=== PATIENT | female | born 1970 | race Caucasian/White ===

== ENCOUNTER 2020-11-24 09:54 | Outpatient (CLI) | payer MEDICAID, SELFPAY ==
--- NOTE | 2020-11-24 10:02 | US_ITS ---
WS: [id number] ULTRASOUND ABDOMEN CLINICAL INFORMATION: SWOLLEN ABDOMEN/ABDOMINAL DISTENSION (GASEOUS) COMPARISON: None. FINDINGS: Liver Size: Normal. Craniocaudal length: 15.3 cm. Echogenicity: Normal. Surface nodularity: None. Mass (size and location): None. Bile ducts Intrahepatic ducts: Normal. Common bile duct diameter: 0.5 cm. Gallbladder Normal. Gallstones: None. Gallbladder sludge: None. Gallbladder wall thickening: None. Pericholecystic fluid: None. Sonographic Lopez sign: Absent. Pancreas Normal as visualized. Spleen Splenomegaly: None. Craniocaudal length: 8.3 cm. Right kidney: Normal. Hydronephrosis: None. Size: 10.1 cm x 5.4 cm x 4.0 cm Left kidney: Normal. Hydronephrosis: None. Size: 9.3 cm x 4.7 cm x 4.2 cm. Abdominal aorta and IVC Visualized portions are normal. Ascites: None. US/US abdomen complete* [id number] IMPRESSION: Normal abdominal ultrasound
== END 2020-11-24 09:55 | disposition home or self-care (01) ==
LOC: RAD 10:01
PROVIDERS: PCP Nurse Practitioner; Visit Provider Nurse Practitioner Family
DX: R14.0 Abdominal distension (gaseous) (principal)
CPT/HCPCS: 76700

== ENCOUNTER → 2020-11-29 14:07 | Outpatient (BNVA) | payer MEDICAID, SELFPAY | PROVIDERS: PCP Nurse Practitioner Family; Referring Provider Nurse Practitioner Family; Visit Provider Orthopaedic Surgery | DX: M25.551 Pain in right hip (principal); M16.11 Unilateral primary osteoarthritis, right hip | CPT/HCPCS: 73502 ==

== ENCOUNTER → 2020-12-07 09:05 | Outpatient (BNVA) | payer MEDICAID, SELFPAY | PROVIDERS: PCP Nurse Practitioner Family; Referring Provider Orthopaedic Surgery; Visit Provider Anesthesiology Pain Medicine | DX: M25.552 Pain in left hip (principal); M19.90 Unspecified osteoarthritis, unspecified site; M47.816 Spondylosis without myelopathy or radiculopathy, lumbar region; M54.2 Cervicalgia | CPT/HCPCS: 99205 ==

== ENCOUNTER → 2020-12-08 12:40 | Outpatient (BNVA) | payer MEDICAID, SELFPAY | PROVIDERS: PCP Nurse Practitioner Family; Visit Provider Anesthesiology Pain Medicine | DX: G89.29 Other chronic pain (principal); M25.552 Pain in left hip; M19.90 Unspecified osteoarthritis, unspecified site; F17.210 Nicotine dependence, cigarettes, uncomplicated | CPT/HCPCS: 20610; 77002; 77003; J1030; J3490 ==

== ENCOUNTER 2020-12-17 14:49 | Outpatient (CLI) | payer MEDICAID, SELFPAY ==
--- NOTE | 2020-12-17 15:00 | USCV_ITS ---
Cathy Bray Age: 50 Gender: F : 1970 Exam Date: 12/17/2020 15:07 Ordering Phys: Rupa Ackerman MD ([email or web address]) Technologist: Hue Roy [place] [facility] [place]: [place]ST PAIN BP: / HR: 72 Rhythm: Sinus Technical Quality: Adequate MEASUREMENTS (Male / Female) Normal Values 2D ECHO LV Diastolic Diameter PLAX 3.6 cm 4.2 - 5.9 / 3.9 - 5.3 cm LV Systolic Diameter PLAX 2.0 cm LV Chamber Size 2.4 cm IVS Diastolic Thickness 1.1 cm 0.6 - 1.0 / 0.6 - 0.9 cm IVS Systolic Thickness 1.0 cm LVPW Diastolic Thickness 1.7 cm 0.6 - 1.0 / 0.6 - 0.9 cm LVPW Systolic Thickness 1.7 cm RV Chamber Size 2.1 cm LVOT Diameter 2.0 cm LV Ejection Fraction 2D Teich 74.3 % LV Ejection Fraction MOD 2C 48.1 % LV Ejection Fraction 2C AL 48.9 % LA Diameter 2.6 cm LA Width 2.5 cm LA Height 4.0 cm RA Width 2.9 cm RA Height 3.3 cm Aorta at Sinotubular Diameter 2.6 cm M-MODE LV Diastolic Diameter MM 4.8 cm 4.2 - 5.9 / 3.9 - 5.3 cm LV Systolic Diameter MM 2.6 cm LV Ejection Fraction MM Teich 75.7 % IVS Diastolic Thickness MM 0.6 cm 0.6 - 1.0 / 0.6 - 0.9 cm IVS Systolic Thickness MM 0.9 cm LVPW Diastolic Thickness MM 0.7 cm 0.6 - 1.0 / 0.6 - 0.9 cm LVPW Systolic Thickness MM 1.2 cm Aortic Annulus Diameter 3.1 cm LA Ao Ratio MM 0.9 MV E Point Septal Separation 0.5 cm DOPPLER AV Peak Velocity 139.0 cm/s LVOT Peak Velocity 119.0 cm/s AV Area Cont Eq vti 2.7 cm squared AV Area Cont Eq pk 2.8 cm squared MV Area PHT 4.2 cm squared Mitral E to A Ratio 0.7 MV E' Velocity 40.5 cm/s Mitral E to MV E' Ratio 4.4 Mitral E to LV E' Lateral Ratio 4.4 Mitral E to LV E' Septal Ratio 4.4 TR Peak Velocity 262.0 cm/s TR Peak Gradient 27.5 mmHg TV Peak E Velocity 92.0 cm/s Right Atrial Pressure 3.0 mmHg Pulmonary Artery Systolic Pressu 30.5 mmHg PV Peak Velocity 73.0 cm/s RV Acceleration Time 0.2 s RV Ejection Time 0.4 s RV AcT/ET 0.5 FINDINGS Left Ventricle Normal LV size with a borderline low ejection fraction of 50 to 55%. Mild diffuse hypokinesia of the septum.Grade I/IV diastolic dysfunction (abnormal relaxation filling pattern), normal to mildly elevated filling pressures. Right Ventricle Right Atrium Left Atrium Mitral Valve No gross abnormalities noted Aortic Valve Trace aortic valve regurgitation. Tricuspid Valve Trace tricuspid valve regurgitation. Pulmonic Valve Pericardium Aorta CONCLUSIONS Normal LV size with a borderline low ejection fraction of 50 to 55%. Mild diffuse hypokinesia of the septum. Grade I/IV diastolic dysfunction (abnormal relaxation filling pattern), normal to mildly elevated filling pressures. Trace aortic valve regurgitation. Trace tricuspid valve regurgitation. Normal pulmonary artery peak systolic pressure 31 mmHg There is no pericardial effusion. There are no intracardiac masses. No previous study is available for comparison. Dr Rupa Ackerman MD FACC (Electronically Signed) Final Date: 18 December 2020 10:01 S
== END 2020-12-17 14:50 | disposition home or self-care (01) ==
PROVIDERS: PCP Nurse Practitioner Family; Visit Provider Internal Medicine Cardiovascular Disease
DX: R07.89 Other chest pain (principal); I08.2 Rheumatic disorders of both aortic and tricuspid valves
CPT/HCPCS: 93306

== ENCOUNTER 2020-12-21 06:00 | Outpatient (RCR) | payer SELFPAY | END 2021-01-14 23:59 | disposition home or self-care (01) | LOC: WPT 06:00 | PROVIDERS: PCP Nurse Practitioner Family; Referring Provider Nurse Practitioner Family; Visit Provider Nurse Practitioner Family | DX: M54.5 Low back pain (principal) | CPT/HCPCS: 97110; 97163 ==

== ENCOUNTER 2020-12-24 08:54 | Outpatient (CLI) | payer MEDICAID, SELFPAY ==
[2020-12-24 09:11] VITALS: BMI 20.7
--- NOTE | 2020-12-24 09:16 | ECG_ITS ---
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 Interpretive Statements NAME OF STUDY: LEXISCAN SESTAMIBI STRESS TEST INDICATION: Chest Pain RESULTS TO ROSSY GONZALEZ PROCEDURE: At the baseline, the EKG revealed normal sinus rhythm with a normal ST-T's. The baseline blood pressure was 128/76 mm Hg with a heart rate of 91 beats/min. Lexiscan was infused over a period of 20 seconds. A total of 0.4 milligrams of Lexiscan was infused. The stress phase was continued for a total of 5 minutes. Heart rate at the end of the stress phase was 101 with a blood pressure 122/79. The EKG at the peak infusion revealed no significant changes. Sestamibi was injected 20 seconds after the Lexiscan infusion. Blood pressure at the end of the recovery phase was 128/80 with a heart rate of 100 per minute. CONCLUSION: 1. No significant EKG changes with the LexiScan infusion 2. No LexiScan induced chest pain or cardiac arrhythmia 3. Normal blood pressure and heart rate response 4. Sestamibi/sestamibi perfusion scan pending; see separate report. Electronically Signed On 12-27-2020 23:29:37 CDT by Rupa Ackerman M.D. [id number]
--- NOTE | 2020-12-24 09:17 | NMCV_ITS ---
NM ron perf SPECT r/s* [id number] Cathy Bray Age: 50 Gender: F : 1970 Exam Date: 12/24/2020 10:05 Ordering Phys: Rupa Ackerman MD ([email or web address]) Technologist: SABINO Santana Exam Location: [facility] Indications: SOB, chest pain STRESS TEST Please see separate stress test report in [facility] for full findings IMAGE PROTOCOL Rest/Stress 1 Lexiscan Day Radiopharmaceutical Dose (mCi) Administration Site Administered by Rest: Tc-99m 10.8 IV SABINO Santana Sestamibi Stress:Tc-99m 32.6 IV SABINO Santana Sestamibi Rest: 24-Dec-2020 60 Discovery 630 Stress: 24-Dec-2020 30 Discovery 630 0.4mg Lexiscan. Images obtained in supine and prone position. SPECT RESULTS Technical Quality: Excellent Raw Data Analysis: Normal Image Corrections: No attenuation or motion correction applied Summed Stress Score: 0 Summed Rest Score: 5 Summed Difference Score: 0 PERFUSION FINDINGS Areas of slightly decreased tracer uptake in the anterior, anteroseptal and apical regions, with no significant reversibility. FUNCTIONAL RESULTS (calculated via Gated SPECT) Stress Image LV EF (%): 65 Stress EDV (mL):57 TID: 1 Stress ESV (mL):20 FUNCTIONAL FINDINGS: Segmental wall motion analysis revealing no gross wall motion normalities. IMPRESSIONS 1. Myocardial perfusion imaging revealing areas of slightly decreased persistent tracer uptake in the anterior, anteroseptal and apical regions, most likely represent attenuation artifacts. 2. Normal LV ejection fraction 65%. 3. LV wall motion analysis revealing no gross wall motion abnormalities. 4. Normal LV volume. No significant coronary ischemia, based on the above findings Dr Rupa Ackerman MD FACC (Electronically Signed) Final Date: 24 December 2020 14:37 S
[2020-12-24] MEDS: regadenoson 0.4 Mg/5 ml Syringe IVP (11:37)
[2020-12-24 12:11] VITALS: BP 128/83; PULSE 83
== END 2020-12-24 08:55 | disposition home or self-care (01) ==
LOC: CDL 08:56
PROVIDERS: PCP Nurse Practitioner Family; Visit Provider Internal Medicine Cardiovascular Disease
DX: R06.02 Shortness of breath (principal); R07.89 Other chest pain
CPT/HCPCS: 78452; 93017; A9500; J2785

== ENCOUNTER 2020-12-29 10:42 | Outpatient (CLI) | payer MEDICAID, SELFPAY ==
--- NOTE | 2020-12-29 10:45 | MR_ITS ---
WS: [id number] MRI LUMBAR SPINE NONCONTRAST HISTORY: LOW BACK PAIN COMPARISON: None available. TECHNIQUE: Sagittal and axial multisequence imaging is submitted. Mild straightening of the normal lumbar lordosis with mild RIGHT curvature. L4 retrolisthesis by 3 mm. Reactive endplate changes at L2-3 and L4-5. Moderate disc space narrowing and desiccation most significant from L2-3 through L4-5. No fractures. Conus terminates normally at L1-2 disc level. L1-L2: Normal. L2-L3: Mild annular disc bulging with a moderate RIGHT paracentral disc protrusion deforming the thec al sac and minimal deformity of the nerve roots and mild subarticular recess narrowing. Mild bilatera l foraminal narrowing. L3-L4: Diffuse annular disc bulging. There is mild osteophytic ridging. Central disc protrusion conta cting the thecal sac and causing effacement of CSF. Mild central and bilateral subarticular recess an d foraminal stenosis. L4-L5: Moderate annular disc bulging and osteophytic ridging. Mild ligamentum flavum disease and face t arthritis. Disc and osteophyte disease encroaching upon the thecal sac causing mild central, subart icular recess and foraminal stenosis. L5-S1: Mild annular disc bulge. Very mild foraminal narrowing. Paravertebral soft tissues are normal. Yemi's lobe of the liver. MR/MR lumbar spine wo con* [id number] IMPRESSION: 1. Straightening with mild RIGHT curvature lumbar spine. 2. Moderate degenerative disc disease from L2-3 to L4-5 with adjacent chronic endplate changes. 3. Mild central, bilateral subarticular recess and foraminal stenosis at L3-4 and L4-5 due to combination of disc disease, facet disease and osteophytes. 4. Moderate RIGHT paracentral disc protrusion at L2-3 with encroachment upon t he RIGHT lateral thecal sac and mild RIGHT subarticular stenosis.
== END 2020-12-29 10:43 ==
LOC: RADSHAW 10:43
PROVIDERS: PCP Nurse Practitioner Family; Visit Provider Nurse Practitioner Family
DX: M47.816 Spondylosis without myelopathy or radiculopathy, lumbar region (principal); M54.9 Dorsalgia, unspecified; M25.552 Pain in left hip; M19.90 Unspecified osteoarthritis, unspecified site; F17.210 Nicotine dependence, cigarettes, uncomplicated
CPT/HCPCS: 72148; 99214

== ENCOUNTER → 2021-01-25 09:22 | Outpatient (BNVA) | payer MEDICAID, SELFPAY | PROVIDERS: PCP Nurse Practitioner Family; Visit Provider Anesthesiology Pain Medicine | DX: M47.816 Spondylosis without myelopathy or radiculopathy, lumbar region (principal); M48.061 Spinal stenosis, lumbar region without neurogenic claudication; M51.36 Other intervertebral disc degeneration, lumbar region; M54.9 Dorsalgia, unspecified; M25.552 Pain in left hip; M19.90 Unspecified osteoarthritis, unspecified site; F17.210 Nicotine dependence, cigarettes, uncomplicated | CPT/HCPCS: 99214 ==

== ENCOUNTER → 2021-10-06 10:19 | Outpatient (BNVA) | payer MEDICAID, SELFPAY | PROVIDERS: PCP Nurse Practitioner Family; Referring Provider Nurse Practitioner Family; Visit Provider Anesthesiology Pain Medicine | DX: M25.552 Pain in left hip (principal); M47.816 Spondylosis without myelopathy or radiculopathy, lumbar region; M19.90 Unspecified osteoarthritis, unspecified site; F17.200 Nicotine dependence, unspecified, uncomplicated | CPT/HCPCS: 99214 ==

== ENCOUNTER 2021-10-18 10:43 | Outpatient (CLI) | payer MEDICAID, SELFPAY ==
--- NOTE | 2021-10-18 10:51 | CT_ITS ---
WS: [id number] LDCT LUNG CANCER SCREENING TECHNIQUE: Noncontrast CT of the chest with coronal and sagittal reformatted images. CLINICAL INFORMATION: NICOTINE DEPENDENCE, CIGARETTES COMPARISON: None. DLP: 79.81 mGy.cm DIvol: Mean CTDIvol: 1.60 (mGy) All CT scans at [facility] use at least one of these dose optimization techniques: automat ed exposure control; mA and/or kV adjustment per patient size (includes targeted exams where dose is matched to clinical indication); or iterative reconstruction. FINDINGS: Normal caliber thoracic aorta. Calcified left hilar lymph nodes. No mediastinal or hilar lymphadenopa thy. No axillary lymphadenopathy. Calcified granuloma left upper lobe. Slight subpleural fibrosis wit h pleural thickening in the right greater than left upper lobes. Adrenal glands are normal. Tiny esophageal hiatal hernia. CT/CT lung screening [id number] IMPRESSION: LUNG-RADS: 2-Benign Appearance or Behavior FOLLOW UP: 12 Month: Continue annual screening with LDCT
== END 2021-10-18 10:44 | disposition home or self-care (01) ==
LOC: RAD 10:45
PROVIDERS: PCP Nurse Practitioner Family; Visit Provider Nurse Practitioner Family
DX: Z12.2 Encounter for screening for malignant neoplasm of respiratory organs (principal); F17.210 Nicotine dependence, cigarettes, uncomplicated; M16.9 Osteoarthritis of hip, unspecified; M25.552 Pain in left hip; M54.50 Low back pain, unspecified; F17.200 Nicotine dependence, unspecified, uncomplicated
CPT/HCPCS: 20610; 71271; 77002; J1030; J3490

== ENCOUNTER 2021-10-26 10:56 | Outpatient (CLI) | payer MEDICAID, SELFPAY ==
--- NOTE | 2021-10-26 11:07 | MR_ITS ---
WS: [id number] MRI LUMBAR SPINE NONCONTRAST TECHNIQUE: Sagittal T1, T2 and STIR imaging. Axial T1 and T2 imaging. CLINICAL INFORMATION: LUMBAR RADICULOPATHY COMPARISON: None. FINDINGS: Mild lumbar curve. No acute compression. Disc desiccation significantly progressed since Ap 2020 with diffuse endplate edema in the L2-L3 adjacent endplates. Differential considerations include degenerative disc disease with reactive edema although discitis/o steomyelitis is an additional consideration. Recommend correlation for infectious symptoms. No eviden ce of epidural abscess. No significant paravertebral edema. Small amount of T2 hyperintensity in the disc space. Central canal stenosis at this level is also slightly progressed. Mild central canal stenosis seen on the disability program navigator imaging the cervical spine at C5-C7. Slight anterolisth esis C4 on C5. This can be further evaluated with cervical spine MRI. L1-L2: Normal. L2-L3: Mild disc bulging with slight effacement of ventral thecal sac. Moderate central canal stenosi s and impingement on the LEFT greater than RIGHT subarticular recess progressed compared to December 29, 2020. Mild LEFT and no significant RIGHT foraminal narrowing. Mild facet arthropathy. L3-L4: Mild disc bulging with moderate central canal stenosis. Impingement on the subarticular recess bilaterally. Mild facet arthropathy. Mild LEFT and no significant RIGHT foraminal narrowing. Central canal stenosis at this level appears stable. L4-L5: Disc desiccation with mild disc bulging. This results in moderate central canal stenosis with impingement on the traversing L5 nerve roots bilaterally. This appears slightly progressed compared to previous. Small LEFT greater than RIGHT foraminal protrusions with mild LEFT greater than RIGHT fo raminal narrowing. Slight contact of the exiting LEFT L4 nerve root. Mild facet arthropathy. L5-S1: Mild disc bulging with slight effacement of ventral thecal sac. Spinal canal foramen are paten t. Mild facet arthropathy. Tiny central protrusion at this level without nerve root impingement. Visualized pelvic bony structures: Normal. Paravertebral soft tissues: Normal. MR/MR lumbar spine wo con* [id number] IMPRESSION: 1. Mild lumbar curve. No acute compression. 2. Progressed degenerative disc disease at L2-L3 with loss of disc space heigh t and diffuse edema in the L2-L3 endplates. Small amount of signal abnormality in the disc space. Differential considerations include degenerative disc diseas e with reactive edema although discitis/osteomyelitis is an additional consider ation. Recommend correlation for infectious symptoms. This can be followed up w ith gadolinium in 4-6 weeks after treatment or therapy to assess for change. 3. Progressed central canal stenosis L2-L3 with central disc bulging and moder ate central canal stenosis. Impingement traversing L3 nerve roots bilaterally. 4. Slightly progressed moderate central canal stenosis L4-L5 with impingement on the traversing L5 nerve roots bilaterally. 5. Stable moderate central canal stenosis L3-L4. 6. Mild to moderate foraminal narrowing more prominent at LEFT L2-L3, LEFT L3- L4, and LEFT L4-L5 worse at LEFT L4-L5 with contact of the exiting LEFT L4 nerv e root. 7. Mild facet arthropathy L3-L5. 8. Moderate spondylitic changes with mild to moderate central canal stenosis p artially evaluated on the disability program navigator imaging in the cervical spine at C5-C7. This ca n be followed up with cervical spine MRI.
== END 2021-10-26 10:57 | disposition home or self-care (01) ==
LOC: RAD 10:58
PROVIDERS: PCP Nurse Practitioner Family; Visit Provider Nurse Practitioner Family
DX: M54.16 Radiculopathy, lumbar region (principal); M51.36 Other intervertebral disc degeneration, lumbar region; M48.061 Spinal stenosis, lumbar region without neurogenic claudication; M47.816 Spondylosis without myelopathy or radiculopathy, lumbar region
CPT/HCPCS: 72148

== ENCOUNTER 2021-10-28 17:32 | Emergency (ER) | payer MEDICAID, SELFPAY ==
[2021-10-28 18:00] VITALS: BP 134/83; PULSE 102; RESP 16; TEMP 36.8; O2SAT 98; BMI 20.9
--- NOTE | 2021-10-28 21:06 | XRR_ITS ---
PROCEDURE INFORMATION: Exam: XR Chest Exam date and time: 10/28/2021 9:06 PM Age: 51 years old Clinical indication: Cough; Additional info: Covid symptoms TECHNIQUE: Imaging protocol: XR of the chest. Views: 1 view. COMPARISON: CT lung screening [id number] 10/18/2021 11:04 AM FINDINGS: Lungs: The lungs are hyperinflated compatible with COPD with mild interstitial and ground-glass opacity in the lung bases increased compared to the prior CT scan concerning for very mild pneumonitis versus atelectasis. Pulmonary vascularity is within normal limits. No lobar consolidation. Pleural spaces: Unremarkable. No pleural effusion. No pneumothorax. Heart/Mediastinum: Unremarkable. No cardiomegaly. Bones/joints: No acute abnormality. XR/XR chest 1V portable [id number] IMPRESSION: The lungs are hyperinflated compatible with COPD with mild interstitial and ground-glass opacity in the lung bases increased compared to the prior CT scan concerning for very mild pneumonitis versus atelectasis.
--- NOTE | 2021-10-28 21:19 | W.ED.COVID ---
Documented by User: Terrence Ward MD 11/03/21 04:52 HPI - COVID General: Chief Complaint: COVID symptoms Stated Complaint: Covid symptoms diff breathing Time Seen by Provider: 10/28/21 21:19 Triage information: Has fever, cough or shortness of breath. No known COVID + exposure last 14 days History of Present Illness: Ms. Bray is a 51-year-old lady with history of COPD and tobaccoism and history of chronic back pain who presents emergency department due to 2 separate concerns. Her primary concern is abnormal imaging. She was seen by her primary care provider and had an outpatient MRI. MRI showed some concern for infection which the patient was referred to the emergency department for. Per report this was discussed with Dr. Luna however upon discussion with him he was not contacted regarding this. The patient has perhaps mildly worsened though not significantly worse pain in her back lately, she does endorse radicular pain worse on the left with mild associated weakness. No other red flag symptoms associated with this. Additionally she presents with concerns regarding possible Covid. For the past week or so she has had cough and congestion. Initially this started as URI type symptoms however now she endorses this is moved to her chest. Intensity of the symptoms is moderate. Course has been worsening. Does have mild nausea and has had diarrhea. No other specific change in health, exacerbating, relieving factors identified. COVID 19 common symptoms: positive cough, throat pain and nasal congestion Severity: moderate COVID Results: SARS-CoV-2 (PCR) Not detected (NOT DETECT) 10/28/21 21:24 10/28/21 Coronavirus Type 229E (PCR) Not detected (NOT DETECT) 10/28/21 21:24 10/28/21 Review of Systems General: Reports: 10 or more systems reviewed and unremarkable except in HPI and below ENMT: Reports: throat pain and nasal congestion PFSH ED PFSH: Medical History Chronic back pain Fatigue Hx of chest pain Mixed anxiety and depressive disorder Outbursts of anger Shortness of breath Vitamin B12 deficiency Vitamin D deficiency Surgical History History of appendectomy Hx of tubal ligation S/P complete hysterectomy Family History Mother CAD (coronary artery disease) Dementia Diabetes Father Cancer Sister Cancer Bleeding disorder Clotting disorder CAD (coronary artery disease) Lung disease Brother Cancer CAD (coronary artery disease) Denies family history of Chronic kidney disease (CKD) Suicide Anesthesia complication Stroke Social History Smoking and tobacco status: current every day smoker Alcohol intake: never Physical Exam Const: COMMON NORMALS: alert GENERAL APPEARANCE: cooperative and well developed; not ill appearing HENMT: COMMON NORMALS: normocephalic, atraumatic, external ears normal and Normal external nose present HEAD & SCALP: normocephalic and atraumatic NOSE: Normal external nose present EXTERNAL EAR: Yes external ears normal Eye: COMMON NORMALS: conjunctivae normal CONJUNCTIVA: Yes conjunctivae normal SCLERA: sclerae normal Neck/C-Spine: COMMON NORMALS: supple GENERAL: Yes trachea midline Resp: COMMON NORMALS: normal respiratory effort EFFORT & INSPECTION: Yes able to speak in complete sentences AUSCULTATION: diminished lung sounds Cardio: COMMON NORMALS: regular rate and regular rhythm RATE: regular rate RHYTHM: regular rhythm GI: COMMON NORMALS: Soft to palpation PALPATION: Yes Soft to palpation and No Tenderness to palpation present (GI) PERCUSSION: normal to percussion Back/Pelvis: THORACIC SPINE/UPPER BACK: No thoracic spinal tenderness LUMBAR SPINE/LOWER BACK: No lumbar spinal tenderness Extremity: GENERAL: Yes normal exam except as noted and No edema Neuro: COMMON NORMALS: moves all extremities SENSORIUM/ORIENTATION: Yes alert and No Orientation impaired Psych: COMMON NORMALS: mental status grossly normal and Normal thought process present THOUGHT PROCESS: Normal thought process present Course ED course: - Patient was seen and evaluated by me at bedside - Patient placed on cardiac monitors, IV access obtained - Initial evaluation notable for exam as above - Labs notable for no leukocytosis. Metabolic panel with likely mild evidence of dehydration. - Chest x-ray with COPD and mild interstitial groundglass opacities - I reviewed MRI imaging and discussed the case including imaging with Dr. Luna of the orthopedic spine service. He does not feel that there is need for IV antibiotics at this time or further inpatient management given provided history. Concerning aspect of read for which patient is referred to the ED is the following Progressed degenerative disc disease at L2-L3 with loss of disc space height and diffuse edema in the L2-L3 endplates. Small amount of signal abnormality in the disc space. Differential considerations include degenerative disc disease with reactive edema although discitis/osteomyelitis is an additional consideration. Recommend correlation for infectious symptoms. This can be followed up with gadolinium in 4-6 weeks after treatment or therapy to assess for change. - Based on clinical history I do not feel that the patient is describing symptoms of discitis/osteomyelitis. Pain is not markedly worse from baseline and the patient has not had significant fevers or progressed neurologic deficits. - Upon serial reexamination after treatment the patient was mildly improved - I discussed potential disposition plan with the patient, she is comfortable and all questions were answered. Plan to have outpatient follow-up with Dr. Luna. - Patient care handed off to overnight ED physician Dr. Villavicencio pending completion of ED evaluation including Covid testing Note: Click bubbles or prepopulated haro in note writing are used for assistance with data collection and billing and are inherently more limited than narrative and other text portions of this note. Please use narrative for additional clinical history and defer to narrative/free test for any case of contradictory information. If information appears in only free text or click bubble it should be considered present or absent as reported. Please contact note typewriter repairer for clarifications of clinical information or contradictory information. MDM is a brief summary, contradictory or erroneous seeming information should be clarified and full note should be reviewed. Vital Signs: Vital signs: Vital Signs Temperature 98.2 F 10/28/21 18:00 Pulse Rate 102 H 10/28/21 18:00 Respiratory Rate 16 10/28/21 18:00 Blood Pressure 134/83 10/28/21 18:00 Pulse Oximetry 98 10/28/21 18:00 MDM - COVID Medical Decision Making 51-year-old lady with history of back pain presenting due to 2 concerns, 1 is Covid-like symptoms and the other is abnormal MRI. On clinical exam patient is neurologically intact, nontoxic in appearance, and not significantly ill. Unremarkable palpation of spine, patient reports chronic pain which is largely unchanged. Discussed with Dr. Luna. Patient can safely be discharged and have follow-up in clinic. Handed off to overnight ED physician pending completion of Covid testing and likely plan for discharge. Discussed with patient, she is comfortable with this. 51-year-old female checked out to me by the previous physician at change of shift. This lady had upper respiratory symptoms with cough and congestion, and a history of COPD. She is Covid negative by PCR. White blood cell count is 6. Hemoglobin 13. She had complaints of back pain as well, evidently there was some concern over possible discitis on MRI. This is less concerning after reading report. Previous physician spoke with spine surgery, they are willing to see in clinic. Case management order has been placed for referral. Should go home with treatment for COPD exacerbation. Medical Records I reviewed the patient's medical records. Lab Data I reviewed the patient's lab results. : 10/28/21 21:34 10/28/21:34 Radiology Impressions Chest X-Ray 10/28/21 21:06 IMPRESSION: The lungs are hyperinflated compatible with COPD with mild interstitial and ground-glass opacity in the lung bases increased compared to the prior CT scan concerning for very mild pneumonitis versus atelectasis. Laboratory Results WBC 6.7 10^3/uL (4.0-10.0) 10/28/21: RBC 4.18 10^6/uL (4.1-5.3) 10/28/21 21: Hgb 13.7 g/dL (11.5-15.3) 10/28/21: Hct 39.8 % (37.0-47.0) 10/28/21: MCV 95.2 fl (81-99) 10/28/21: MCH 32.8 pg (28.0-34.0) 10/28/21: MCHC 34.4 g/dL (30.0-36.0) 10/28/21: RDW 12.9 % (12.1-15.1) 10/28/21: Plt Count 217 10^3/cmm (130-400) 10/28/21: MPV 9.0 fL (7.4-10.4) 10/28/21: Neut % (Auto) 60.2 % 10/28/21: Lymph % (Auto) 27.2 % 10/28/21: [place] % (Auto) 8.9 % 10/28/21: Eos % (Auto) 2.7 % 10/28/21: Baso % (Auto) 0.7 % 10/28/21 21:34 Neut # (Auto) 4.06 10^3/uL (1.8-7.7) 10/28/21 21:34 Lymph # (Auto) 1.8 10^3/uL (0.8-4.8) 10/28/21 21:34 [place] # (Auto) 0.6 10^3/uL (0.2-0.9) 10/28/21 21:34 Eos # (Auto) 0.2 10^3/uL (0.0-0.8) 10/28/21 21:34 Baso # (Auto) 0.1 10^3/uL (0.0-0.1) 10/28/21:34 Nucleated RBC % (auto) 0 % 10/28/21 21: Nucleated RBCs # 0.0 /100WBC 10/28/21 21:34 Sodium 131 mmol/L (136-145) L 10/28/21 21:34 Potassium 4.1 mmol/L (3.5-5.1) 10/28/21 21:34 Chloride 97 mmol/L (98-107) L 10/28/21 21:34 Carbon Dioxide 20 mmol/L (22-29) L 10/28/21 21:34 Anion Gap 18.1 (5-19) 10/28/21 21:34 BUN 11 mg/dL (6-20) 10/28/21 21:34 Creatinine 0.5 mg/dL (0.5-0.9) 10/28/21 21:34 GFR Calculation 129.1 mL/min (90-130) 10/28/21 21:34 Glucose 87 mg/dL (65-115) 10/28/21 21:34 Calculated Osmolality 271 mOsm/kg (285-295) L 10/28/21 21:34 Calcium 10.2 mg/dL (8.5-10.5) 10/28/21 21:34 Total Bilirubin 0.3 mg/dL (0.15-1.2) 10/28/21 21:34 AST 18 U/L (0-32) 10/28/21 21:34 ALT 15 U/L (0-33) 10/28/21 21:34 Alkaline Phosphatase 131 IU/L (35-105) H 10/28/21 21:34 Total Protein 7.9 g/dL (6.6-8.7) 10/28/21 21:34 Albumin 4.7 g/dL (3.5-5.2) 10/28/21 21:34 Globulin 3.2 g/dL (1.3-4.6) 10/28/21 21:34 Coronavirus 229E (PCR) Not detected (NOT DETECT) 10/28/21 21:24 SARS-CoV-2 (PCR) Not detected (NOT DETECT) 10/28/21 21:24 Group A Strep Rapid Negative (Negative) 10/28/21 22:07 SARS-CoV-2 (PCR) Not detected (NOT DETECT) 10/28/21 21:24 10/28/21 Coronavirus Type 229E (PCR) Not detected (NOT DETECT) 10/28/21 21:24 10/28/21 Discharge Plan Discharge Patient Disposition: Home Clinical Impression: Bronchitis Condition: Stable Prescriptions: New doxycycline hyclate 100 mg capsule 100 mg PO BID 7 Days Qty: 14 0RF Medrol (Yovany) 4 mg tablets,dose pack See Rx Instructions PO .COMPLEX Qty: 21 0RF Rx Instructions: orally per package directions No Action B-12 Compliance 1,000 mcg/mL kit 1,000 mcg IM .q week x 4 Qty: 1 0RF pantoprazole 20 mg tablet,delayed release (DR/EC) 20 mg PO DAILY 0RF acetaminophen 500 mg tablet 500 mg PO QID PRN0RF methylprednisolone acetate [Depo-Medrol] 40 mg/mL suspension 40 mg intra-articular ONCE Qty: 1 0RF bupivacaine (PF) 0.25 % (2.5 mg/mL) solution 5 ml intra-articular ONCE Qty: 1 0RF Gel-One 30 mg/3 mL syringe 30 mg intra-articular ONCE Qty: 3 0RF mecobalamin (vitamin B12) 10,000 mcg recon soln 1,000 mcg IM .Qweek Qty: 1 1RF bupropion HCl [Wellbutrin XL] 300 mg tablet extended release 24 hr 300 mg PO QAM 0RF methocarbamol 750 mg tablet 750 mg PO TID 0RF trazodone 100 mg tablet 100 mg PO DAILY 0RF cyanocobalamin (vitamin B-12) 1,000 mcg tablet, sublingual 1,000 mcg sublingual DAILY 0RF B Complex Plus Vitamin C 13-90-92-5-300 mg capsule 1 cap PO DAILY 0RF Rx Instructions: give with food (meal/snack) cholecalciferol (vitamin D3) 125 mcg (5,000 unit) capsule 125 mcg PO DAILY 0RF Discharge Orders: Discharge ED (Routine); Ordered 10/29/21 Ordered By: Hong Villavicencio Referrals: Neelam Moran FNP-C [Primary Care Provider] - 4-7 days Patient Instructions: Acute Bronchitis (ED), Lumbar Radiculopathy (ED) Activity Restrictions/Additional Instructions: Return for worsening shortness of breath despite treatment, fever greater than 100, chest discomfort, any other concerning symptoms. A case management referral has been made for you to see spine surgery regarding your back. You should get a call at the beginning of the coming week regarding that appointment. Coding Level of Care Code ED Podiatrist Assistant for Chg Fwd Documented by User: Hong Villavicencio, 10/29/21 05:37 HPI - COVID General: Chief Complaint: COVID symptoms Stated Complaint: Covid symptoms diff breathing Time Seen by Provider: 10/28/21 21:19 COVID Results: SARS-CoV-2 (PCR) Not detected (NOT DETECT) 10/28/21 21:24 10/28/21 Coronavirus Type 229E (PCR) Not detected (NOT DETECT) 10/28/21 21:24 10/28/21 [facility] ED PFSH: Medical History Chronic back pain Fatigue Hx of chest pain Mixed anxiety and depressive disorder Outbursts of anger Shortness of breath Vitamin B12 deficiency Vitamin D deficiency Surgical History History of appendectomy Hx of tubal ligation S/P complete hysterectomy Family History Mother CAD (coronary artery disease) Dementia Diabetes Father Cancer Sister Cancer Bleeding disorder Clotting disorder CAD (coronary artery disease) Lung disease Brother Cancer CAD (coronary artery disease) Denies family history of Chronic kidney disease (CKD) Suicide Anesthesia complication Stroke Social History Smoking and tobacco status: current every day smoker Alcohol intake: never Course Vital Signs: Vital signs: Vital Signs Temperature 98.2 F 10/28/21 18:00 Pulse Rate 102 H 10/28/21 18:00 Respiratory Rate 16 10/28/21 18:00 Blood Pressure 134/83 10/28/21 18:00 Pulse Oximetry 98 10/28/21 18:00 MDM - COVID Medical Decision Making 51-year-old female checked out to me by the previous physician at change of shift. This lady had upper respiratory symptoms with cough and congestion, and a history of COPD. She is Covid negative by PCR. White blood cell count is 6. Hemoglobin 13. She had complaints of back pain as well, evidently there was some concern over possible discitis on MRI. This is less concerning after reading report. Previous physician spoke with spine surgery, they are willing to see in clinic. Case management order has been placed for referral. Should go home with treatment for COPD exacerbation. Lab Data : 10/28/21 21:34 10/28/21:34 Radiology Impressions Chest X-Ray 10/28/21 21:06 IMPRESSION: The lungs are hyperinflated compatible with COPD with mild interstitial and ground-glass opacity in the lung bases increased compared to the prior CT scan concerning for very mild pneumonitis versus atelectasis. Laboratory Results WBC 6.7 10^3/uL (4.0-10.0) 10/28/21 21:34 RBC 4.18 10^6/uL (4.1-5.3) 10/28/21:34 Hgb 13.7 g/dL (11.5-15.3) 10/28/21: Hct 39.8 % (37.0-47.0) 10/28/21: MCV 95.2 fl (81-99) 10/28/21: MCH 32.8 pg (28.0-34.0) 10/28/21 21: MCHC 34.4 g/dL (30.0-36.0) 10/28/21:34 RDW 12.9 % (12.1-15.1) 10/28/21:34 Plt Count 217 10^3/cmm (130-400) 10/28/21 21:34 MPV 9.0 fL (7.4-10.4) 10/28/21 21:34 Neut % (Auto) 60.2 % 10/28/21: Lymph % (Auto) 27.2 % 10/28/21:34 [place] % (Auto) 8.9 % 10/28/21 21:34 Eos % (Auto) 2.7 % 10/28/21: Baso % (Auto) 0.7 % 10/28/21: Neut # (Auto) 4.06 10^3/uL (1.8-7.7) 10/28/21: Lymph # (Auto) 1.8 10^3/uL (0.8-4.8) 10/28/21: [place] # (Auto) 0.6 10^3/uL (0.2-0.9) 10/28/21: Eos # (Auto) 0.2 10^3/uL (0.0-0.8) 10/28/21: Baso # (Auto) 0.1 10^3/uL (0.0-0.1) 10/28/21: Nucleated RBC % (auto) 0 % 10/28/21: Nucleated RBCs # 0.0 /100WBC 10/28/21 21: Sodium 131 mmol/L (136-145) L 10/28/21 21: Potassium 4.1 mmol/L (3.5-5.1) 10/28/21 21: Chloride 97 mmol/L (98-107) L 10/28/21: Carbon Dioxide 20 mmol/L (22-29) L 10/28/21: Anion Gap 18.1 (5-19) 10/28/21 21:34 BUN 11 mg/dL (6-20) 10/28/21 21: Creatinine 0.5 mg/dL (0.5-0.9) 10/28/21: GFR Calculation 129.1 mL/min (90-130) 10/28/21 21:34 Glucose 87 mg/dL (65-115) 10/28/21 21:34 Calculated Osmolality 271 mOsm/kg (285-295) L 10/28/21 21:34 Calcium 10.2 mg/dL (8.5-10.5) 10/28/21 21:34 Total Bilirubin 0.3 mg/dL (0.15-1.2) 10/28/21 21:34 AST 18 U/L (0-32) 10/28/21 21:34 ALT 15 U/L (0-33) 10/28/21 21:34 Alkaline Phosphatase 131 IU/L (35-105) H 10/28/21 21:34 Total Protein 7.9 g/dL (6.6-8.7) 10/28/21 21:34 Albumin 4.7 g/dL (3.5-5.2) 10/28/21 21:34 Globulin 3.2 g/dL (1.3-4.6) 10/28/21 21:34 Coronavirus 229E (PCR) Not detected (NOT DETECT) 10/28/21 21:24 SARS-CoV-2 (PCR) Not detected (NOT DETECT) 10/28/21 21:24 Group A Strep Rapid Negative (Negative) 10/28/21 22:07 SARS-CoV-2 (PCR) Not detected (NOT DETECT) 10/28/21 21:24 10/28/21 Coronavirus Type 229E (PCR) Not detected (NOT DETECT) 10/28/21 21:24 10/28/21 Discharge Plan Discharge Patient Disposition: Home Clinical Impression: Bronchitis Condition: Stable Prescriptions: New doxycycline hyclate 100 mg capsule 100 mg PO BID 7 Days Qty: 14 0RF Medrol (Yovany) 4 mg tablets,dose pack See Rx Instructions PO .COMPLEX Qty: 21 0RF Rx Instructions: orally per package directions No Action B-12 Compliance 1,000 mcg/mL kit 1,000 mcg IM .q week x 4 Qty: 1 0RF pantoprazole 20 mg tablet,delayed release (DR/EC) 20 mg PO DAILY 0RF acetaminophen 500 mg tablet 500 mg PO QID PRN0RF methylprednisolone acetate [Depo-Medrol] 40 mg/mL suspension 40 mg intra-articular ONCE Qty: 1 0RF bupivacaine (PF) 0.25 % (2.5 mg/mL) solution 5 ml intra-articular ONCE Qty: 1 0RF Gel-One 30 mg/3 mL syringe 30 mg intra-articular ONCE Qty: 3 0RF mecobalamin (vitamin B12) 10,000 mcg recon soln 1,000 mcg IM .Qweek Qty: 1 1RF bupropion HCl [Wellbutrin XL] 300 mg tablet extended release 24 hr 300 mg PO QAM 0RF methocarbamol 750 mg tablet 750 mg PO TID 0RF trazodone 100 mg tablet 100 mg PO DAILY 0RF cyanocobalamin (vitamin B-12) 1,000 mcg tablet, sublingual 1,000 mcg sublingual DAILY 0RF B Complex Plus Vitamin C 90-88-32-5-300 mg capsule 1 cap PO DAILY 0RF Rx Instructions: give with food (meal/snack) cholecalciferol (vitamin D3) 125 mcg (5,000 unit) capsule 125 mcg PO DAILY 0RF Discharge Orders: Discharge ED (Routine); Ordered 10/29/21 Ordered By: Hong Villavicencio Referrals: Neelam Moran, RISK AND COMPLIANCE ANALYTICS DIRECTOR-C [Primary Care Provider] - 4-7 days Patient Instructions: Acute Bronchitis (ED), Lumbar Radiculopathy (ED) Activity Restrictions/Additional Instructions: Return for worsening shortness of breath despite treatment, fever greater than 100, chest discomfort, any other concerning symptoms. A case management referral has been made for you to see spine surgery regarding your back. You should get a call at the beginning of the coming week regarding that appointment. Coding Level of Care Code ED Podiatrist Assistant for Ashley Montejo
[2021-10-28 21:50] LABS: Basophils # 0.1 10^3/uL (0.0-0.1); Basophils % 0.7 %; Eosinophils # 0.2 10^3/uL (0.0-0.8); Eosinophils % 2.7 %; Hematocrit 39.8 % (37.0-47.0); Hemoglobin 13.7 g/dL (11.5-15.3); Lymphocytes # 1.8 10^3/uL (0.8-4.8); Lymphocytes % 27.2 %; Mean Corpuscular HGB Conc 34.4 g/dL (30.0-36.0); Mean Corpuscular Hemoglobin 32.8 pg (28.0-34.0); Mean Corpuscular Volume 95.2 fl (81-99); Monocytes # 0.6 10^3/uL (0.2-0.9); Monocytes % 8.9 %; Neutrophils # 4.06 10^3/uL (1.8-7.7); Neutrophils % 60.2 %; Nucleated Red Blood Cells % 0 %; Platelet Count 217 10^3/cmm (130-400); Red Blood Count 4.18 10^6/uL (4.1-5.3); Red Cell Distribution Width 12.9 % (12.1-15.1); White Blood Count 6.7 10^3/uL (4.0-10.0)
[2021-10-28 22:37] LABS: Alanine Aminotransferase 15 U/L (0-33); Albumin Level 4.7 g/dL (3.5-5.2); Alkaline Phosphatase 131 IU/L (35-105); Anion Gap 18.1 (5-19); Aspartate Amino Transferase 18 U/L (0-32); Blood Urea Nitrogen 11 mg/dL (6-20); Calcium 10.2 mg/dL (8.5-10.5); Carbon Dioxide 20 mmol/L (22-29); Chloride 97 mmol/L (98-107); Globulin 3.2 g/dL (1.3-4.6); Glomerular Filtration Rate 129.1 mL/min (90-130); Glucose 87 mg/dL (65-115); Osmolality Calculated 271 mOsm/kg (285-295); Potassium 4.1 mmol/L (3.5-5.1); Sodium 131 mmol/L (136-145); Total Bilirubin 0.3 mg/dL (0.15-1.2); Total Protein 7.9 g/dL (6.6-8.7)
[2021-10-28] MEDS: acetaminophen 500 mg Tablet 1000 MG PO (23:01)
[2021-10-28] MEDS: ketorolac 30 mg/mL INJ 15 MG IVP (23:01)
[2021-10-28] MEDS: sodium chloride 0.9% 500 ML 999 ML IV (23:07)
[2021-10-29 02:12] LABS: Adenovirus Not Detected (NOT DETECT); Chlamydia Pneumoniae Not Detected (NOT DETECT); Coronavirus 229E,HKU1,NL63,OC4 Not Detected (NOT DETECT); Human Metapneumovirus Not Detected (NOT DETECT); Human Rhinovirus/Enterovirus Not Detected (NOT DETECT); Influenza A Not Detected (NOT DETECT); Influenza A H1 Not Detected (NOT DETECT); Influenza A H1-2009 Not Detected (NOT DETECT); Influenza A H3 Not Detected (NOT DETECT); Influenza B Not Detected (NOT DETECT); Mycoplasma Pneumoniae Not Detected (NOT DETECT); Parainfluenza Virus Type 1 Not Detected (NOT DETECT); Parainfluenza Virus Type 2 Not Detected (NOT DETECT); Parainfluenza Virus Type 3 Not Detected (NOT DETECT); Parainfluenza Virus Type 4 Not Detected (NOT DETECT); Respiratory Syncytial Virus A Not Detected (NOT DETECT); Respiratory Syncytial Virus B Not Detected (NOT DETECT); SARS-COV-2 Not Detected (NOT DETECT)
[2021-10-29 02:20] LABS: Rapid Strep A Test Negative (Negative)
[2021-10-29] MEDS: dexamethasone 4 mg/mL INJ 8 MG IVP (03:46)
[2021-10-29] MEDS: doxycycline 100 mg Tablet PO (03:46)
--- NOTE | 2021-10-31 09:43 | DCPLANNER ---
Addendum entered by Geraldine Moran 11/17/21 10:06: Patient had a follow up appointment scheduled for 11.17.21 with ortho - patient did attend appointment. Addendum entered by Geraldine Moran 11/11/21 21:58: Patient has a follow up appointment scheduled for November at 9:[address] Luna at ortho. Clinic will call patient with appointment information. Original Note: manager inventory control had message to schedule a follow up appointment for patient with ortho. manager inventory control called the ortho clinic, spoke with X[facility], gave clinic patients information. manager inventory control was told that patients information would be printed and reviewed. Clinic will call patient with appointment information.
== END 2021-10-29 03:51 | disposition home or self-care (01) ==
PROVIDERS: Emergency Provider Emergency Medicine; PCP Nurse Practitioner Family
DX: J40 Bronchitis, not specified as acute or chronic (principal); F17.210 Nicotine dependence, cigarettes, uncomplicated; Z20.822 Contact with and (suspected) exposure to COVID-19
CPT/HCPCS: 36415; 71045; 80053; 85025; 87040; 87081; 87635; 87880; 96374; 96375; 99283; J1100; J1885; J7040

== ENCOUNTER → 2021-11-17 09:41 | Outpatient (BNVA) | payer MEDICAID, SELFPAY | PROVIDERS: PCP Nurse Practitioner Family; Referring Provider Nurse Practitioner Family; Visit Provider Orthopaedic Surgery | DX: M47.816 Spondylosis without myelopathy or radiculopathy, lumbar region (principal) | CPT/HCPCS: 72110 ==

== ENCOUNTER → 2021-11-24 15:10 | Outpatient (BNVA) | payer MEDICAID, SELFPAY | PROVIDERS: PCP Nurse Practitioner Family; Visit Provider Anesthesiology Pain Medicine | DX: M25.552 Pain in left hip (principal); M47.816 Spondylosis without myelopathy or radiculopathy, lumbar region; F17.210 Nicotine dependence, cigarettes, uncomplicated | CPT/HCPCS: 99214 ==

== ENCOUNTER → 2021-12-15 13:11 | Outpatient (BNVA) | payer MEDICAID, SELFPAY | PROVIDERS: PCP Nurse Practitioner Family; Visit Provider Anesthesiology Pain Medicine | DX: M54.16 Radiculopathy, lumbar region (principal); M48.062 Spinal stenosis, lumbar region with neurogenic claudication; F17.200 Nicotine dependence, unspecified, uncomplicated | CPT/HCPCS: 64483; 64484; J1100; J3490 ==

== ENCOUNTER → 2022-01-05 10:00 | Outpatient (BNVA) | payer MEDICAID, SELFPAY | PROVIDERS: PCP Nurse Practitioner Family; Visit Provider Anesthesiology Pain Medicine | DX: M47.816 Spondylosis without myelopathy or radiculopathy, lumbar region (principal); M48.062 Spinal stenosis, lumbar region with neurogenic claudication; M54.12 Radiculopathy, cervical region; M25.552 Pain in left hip; M19.90 Unspecified osteoarthritis, unspecified site; F17.200 Nicotine dependence, unspecified, uncomplicated | CPT/HCPCS: 72040; 99215 ==

== ENCOUNTER → 2022-01-11 12:30 | Outpatient (BNVA) | payer MEDICAID, SELFPAY | PROVIDERS: PCP Nurse Practitioner Family; Visit Provider Anesthesiology Pain Medicine | DX: M25.552 Pain in left hip (principal); M54.2 Cervicalgia; F17.210 Nicotine dependence, cigarettes, uncomplicated; M47.816 Spondylosis without myelopathy or radiculopathy, lumbar region | CPT/HCPCS: 64493; 64494; 64495; J3490 ==

== ENCOUNTER → 2022-02-02 14:01 | Outpatient (BNVA) | payer MEDICAID, SELFPAY | PROVIDERS: PCP Nurse Practitioner Family; Visit Provider Anesthesiology Pain Medicine | DX: M48.062 Spinal stenosis, lumbar region with neurogenic claudication (principal); F17.200 Nicotine dependence, unspecified, uncomplicated; M47.816 Spondylosis without myelopathy or radiculopathy, lumbar region | CPT/HCPCS: 64493; 64494; 64495; J3490 ==

== ENCOUNTER 2022-02-10 13:23 | Outpatient (CLI) | payer MEDICAID, SELFPAY ==
--- NOTE | 2022-02-10 13:45 | MR_ITS ---
WS: [id number] MRI CERVICAL SPINE NONCONTRAST HISTORY: M54.12 - Radiculopathy, cervical region, Chronic neck pain down both arms. COMPARISON: None available. Technique: Multiplanar, multisequence noncontrast imaging of the cervical spine. Quality is degraded by motion artifact despite numerous attempts at obtaining motion free images. C4 anterolisthesis by 3 mm. Disc spaces are moderately narrowed and desiccated with osteophytic ridgi ng beginning at C4-C7. No significant abnormality. Subtle areas of increased signal may not be visualized with this amount o f motion. Craniocervical junction, C1 and C2 relationship, odontoid process and soft tissues are normal. Small posterior fossa arachnoid cyst. C2-C3: Small central disc protrusion. No stenosis. C3-C4: Mild osteophytic ridging with no stenosis. C4-C5: Diffuse annular disc bulging and osteophytic ridging and facet arthritis. Mild central stenosi s with severe RIGHT and mild LEFT foraminal stenosis. C5-C6: Diffuse annular disc bulging with facet arthritis. Effacement of ventral CSF. Mild central and bilateral foraminal stenosis, slightly greater encroachment into the RIGHT foramen. C6-C7: Diffuse annular disc bulging with a central disc protrusion. Bilateral facet joint arthritis. Disc osteophyte complexes extend into the foramina causing at least moderate stenosis. C7-T1: Diffuse annular disc bulging with mild central and moderate foraminal stenosis due to disc ost eophyte complexes. Paraspinal soft tissue are normal. MR/MR cervical spin wo con* [id number] IMPRESSION: 1. Multilevel advanced degenerative disc disease and spondylosis. 2. Severe RIGHT foraminal stenosis at C4-5 with mild central and LEFT foramina l stenosis. 3. Mild central and bilateral foraminal stenosis at C5-6. 4. Moderate bilateral foraminal stenosis at C6-7 due to disc osteophyte comple xes. 5. Mild central and moderate foraminal stenosis at C7-T1 due to disc osteophyt e complexes. ..
== END 2022-02-10 13:24 | disposition home or self-care (01) ==
LOC: RAD 13:24
PROVIDERS: PCP Nurse Practitioner Family; Visit Provider Anesthesiology Pain Medicine
DX: M54.12 Radiculopathy, cervical region (principal)
CPT/HCPCS: 72141

== ENCOUNTER → 2022-02-16 10:50 | Outpatient (BNVA) | payer MEDICAID, SELFPAY | PROVIDERS: PCP Nurse Practitioner Family; Visit Provider Anesthesiology Pain Medicine | DX: M51.17 Intervertebral disc disorders with radiculopathy, lumbosacral region (principal); M47.816 Spondylosis without myelopathy or radiculopathy, lumbar region; M48.062 Spinal stenosis, lumbar region with neurogenic claudication; M19.90 Unspecified osteoarthritis, unspecified site; M25.552 Pain in left hip; F17.200 Nicotine dependence, unspecified, uncomplicated | CPT/HCPCS: 99215 ==

== ENCOUNTER → 2022-02-20 12:38 | Outpatient (BNVA) | payer MEDICAID, SELFPAY | PROVIDERS: PCP Nurse Practitioner Family; Visit Provider Anesthesiology Pain Medicine | DX: M48.062 Spinal stenosis, lumbar region with neurogenic claudication (principal); F17.200 Nicotine dependence, unspecified, uncomplicated; M47.816 Spondylosis without myelopathy or radiculopathy, lumbar region | CPT/HCPCS: 64635; 64636; J1030 ==

== ENCOUNTER → 2022-03-06 12:27 | Outpatient (BNVA) | payer MEDICAID, SELFPAY | PROVIDERS: PCP Nurse Practitioner Family; Visit Provider Anesthesiology Pain Medicine | DX: M47.816 Spondylosis without myelopathy or radiculopathy, lumbar region (principal); M48.062 Spinal stenosis, lumbar region with neurogenic claudication; F17.200 Nicotine dependence, unspecified, uncomplicated | CPT/HCPCS: 64635; 64636; J1030 ==

== ENCOUNTER → 2022-04-18 10:56 | Outpatient (BNVA) | payer MEDICAID, SELFPAY | PROVIDERS: PCP Nurse Practitioner Family; Visit Provider Anesthesiology Pain Medicine | DX: M54.2 Cervicalgia (principal); M51.17 Intervertebral disc disorders with radiculopathy, lumbosacral region; M48.062 Spinal stenosis, lumbar region with neurogenic claudication; M47.816 Spondylosis without myelopathy or radiculopathy, lumbar region; M25.552 Pain in left hip; M19.90 Unspecified osteoarthritis, unspecified site; F17.210 Nicotine dependence, cigarettes, uncomplicated | CPT/HCPCS: 99214 ==

== ENCOUNTER → 2022-06-26 11:25 | Outpatient (BNVA) | payer MEDICAID, SELFPAY | PROVIDERS: PCP Nurse Practitioner; Visit Provider Nurse Practitioner | DX: R50.9 Fever, unspecified (principal) | CPT/HCPCS: 87400 ==

== ENCOUNTER → 2022-10-31 14:04 | Outpatient (BNVA) | payer MEDICAID, SELFPAY | PROVIDERS: PCP Nurse Practitioner; Visit Provider Nurse Practitioner | DX: R69 Illness, unspecified (principal); J20.9 Acute bronchitis, unspecified | CPT/HCPCS: 87400 ==

== ENCOUNTER → 2022-11-03 11:17 | Outpatient (BNVA) | payer MEDICAID, SELFPAY | PROVIDERS: PCP Nurse Practitioner; Visit Provider Nurse Practitioner Family | DX: R05.9 Cough, unspecified (principal); J40 Bronchitis, not specified as acute or chronic; J95.89 Other postprocedural complications and disorders of respiratory system, not elsewhere classified | CPT/HCPCS: 71046; 87426 ==

== ENCOUNTER → 2023-01-23 11:06 | Outpatient (BNVA) | payer MEDICARE, MEDICAID, SELFPAY | PROVIDERS: PCP Nurse Practitioner; Visit Provider Family Medicine | DX: W46.1XXA Contact with contaminated hypodermic needle, initial encounter (principal); Z91.89 Other specified personal risk factors, not elsewhere classified; Z11.59 Encounter for screening for other viral diseases | CPT/HCPCS: 80048; 80074; 85025; 87806 ==

== ENCOUNTER 2023-03-12 10:47 | Outpatient (CLI) | payer MEDICARE, MEDICAID, SELFPAY ==
--- NOTE | 2023-03-12 11:00 | XR_ITS ---
WS: [id number] Exam: XR ankle RT 2V [id number] Date/Time of Exam: 03/12/2023 11:01 AM Reason For Exam: M25.571 - Pain in right ankle and joints of right foot Findings: Multiple views of the ankle reveal no fracture or displacements of bone. No soft tissue swelling is present. There are no periosteal reactions noted. The talus and calcaneus are in adequate position. The joint space is smooth and equidistant. XR/XR ankle RT 2V [id number] IMPRESSION: Negative right ankle.
== END 2023-03-12 10:48 | disposition home or self-care (01) ==
PROVIDERS: PCP Nurse Practitioner; Visit Provider Anesthesiology Pain Medicine
DX: M25.571 Pain in right ankle and joints of right foot (principal); M48.062 Spinal stenosis, lumbar region with neurogenic claudication; M54.2 Cervicalgia; M25.559 Pain in unspecified hip; M54.9 Dorsalgia, unspecified; M19.90 Unspecified osteoarthritis, unspecified site; M47.816 Spondylosis without myelopathy or radiculopathy, lumbar region; M51.17 Intervertebral disc disorders with radiculopathy, lumbosacral region; M25.552 Pain in left hip
CPT/HCPCS: 73600; 99214

== ENCOUNTER 2023-03-27 06:00 | Outpatient (RCR) | payer MEDICARE, MEDICAID, SELFPAY | END 2023-04-16 23:59 | disposition home or self-care (01) | LOC: WPT 06:00 | PROVIDERS: Visit Provider Anesthesiology Pain Medicine | DX: M54.12 Radiculopathy, cervical region (principal) | CPT/HCPCS: 97110; 97140; 97161; 97530 ==

== ENCOUNTER 2023-04-17 06:00 | Outpatient (RCR) | payer MEDICARE, MEDICAID, SELFPAY | END 2023-05-17 23:59 | disposition home or self-care (01) | LOC: WPT 06:00 | PROVIDERS: Visit Provider Anesthesiology Pain Medicine | DX: M54.12 Radiculopathy, cervical region (principal) | CPT/HCPCS: 97110; 97140; 97530 ==

== ENCOUNTER → 2023-05-02 09:30 | Outpatient (BNVA) | payer MEDICARE, MEDICAID, SELFPAY | PROVIDERS: Visit Provider Anesthesiology Pain Medicine | DX: M48.062 Spinal stenosis, lumbar region with neurogenic claudication; M47.816 Spondylosis without myelopathy or radiculopathy, lumbar region; M54.12 Radiculopathy, cervical region; M25.571 Pain in right ankle and joints of right foot; M16.12 Unilateral primary osteoarthritis, left hip | CPT/HCPCS: 99214 ==

== ENCOUNTER → 2023-05-03 09:12 | Outpatient (BNVA) | payer MEDICARE, MEDICAID, SELFPAY | PROVIDERS: Visit Provider Podiatrist Foot & Ankle Surgery | DX: M84.371A Stress fracture, right ankle, initial encounter for fracture; M19.071 Primary osteoarthritis, right ankle and foot; M76.71 Peroneal tendinitis, right leg | CPT/HCPCS: 73630; 99204 ==

== ENCOUNTER 2023-05-18 06:00 | Outpatient (RCR) | payer MEDICARE, MEDICAID, SELFPAY | END 2023-06-16 23:59 | disposition home or self-care (01) | LOC: WPT 06:00 | PROVIDERS: Visit Provider Anesthesiology Pain Medicine | DX: M54.12 Radiculopathy, cervical region (principal) | CPT/HCPCS: 97110; 97140; 97530 ==

== ENCOUNTER 2023-05-28 14:56 | Outpatient (CLI) | payer MEDICARE, MEDICAID, SELFPAY ==
--- NOTE | 2023-05-28 15:15 | MR_ITS ---
WS: [id number] EXAMINATION: MR foot RT wo con* [id number] ORDER DATE: 05/28/2023 3:10 PM COMPARISON: None. HISTORY: possible tendon and ligament injury CONTRAST: None. TECHNIQUE: Sagittal T1, sagittal STIR, coronal PD, coronal T2, axial T1, axial T2, and axial PD imagi ng with fat saturation technique. FINDINGS: Bunion deformity at the head of the first metatarsal. Plantar calcaneal spurring. Normal johnathan ne marrow signal in the calcaneus. No evidence of calcaneal stress fracture. Trace fluid in the retro calcaneal bursa. Tiny ankle effusion. Normal bone marrow signal in the talus and anterior talar neck. Distal Achilles is normal in appearance. Tenosynovitis involving the peroneal tendon sheath with spl it tear involving the peroneal brevis. Tenosynovitis involving the flexor compartment tendons including the tibialis posterior, flexor digit orum longus and flexor hallucis longus. Extensor compartment tendons are normal in appearance. Normal bone marrow signal in the base of the fifth metatarsal. Normal bone marrow signal in the fourth meta tarsal base. Normal navicular. Cuneiforms appear normal. Apparent fracture with cortical step-off involving the proximal second metatarsal with diffuse edema. Edema extends off the [id number]. Metatarsal heads not entirely included on this study. This coul d be further evaluated with CT or additional radiographs. This was not apparent on the prior radiogra ph 05/03/2023. IMPRESSION: 1. Nondisplaced fracture with diffuse edema involving the proximal second metatarsal with diffuse ed harrison in the metatarsal shaft. MTP joints not included on this examination. This be further evaluated w ith CT or additional radiographs. This was not apparent on the prior recent radiograph 05/03/2023. 2. Tenosynovitis involving the peroneal tendon sheath with peroneal brevis split tear. 3. No calcaneal stress fractures. Tiny plantar calcaneal spur. 4. Small ankle effusion. Trace fluid in the retrocalcaneal bursa. 5. Tenosynovitis involving the flexor compartment tendons described above. 6. ATF appears intact.
== END 2023-05-28 14:57 | disposition home or self-care (01) ==
LOC: RAD 15:01
PROVIDERS: PCP Nurse Practitioner; Visit Provider Podiatrist Foot & Ankle Surgery
DX: S92.324A Nondisplaced fracture of second metatarsal bone, right foot, initial encounter for closed fracture (principal); X58.XXXA Exposure to other specified factors, initial encounter; M65.871 Other synovitis and tenosynovitis, right ankle and foot; M77.31 Calcaneal spur, right foot; M25.471 Effusion, right ankle
CPT/HCPCS: 73718

== ENCOUNTER 2023-06-06 15:20 | Outpatient (CLI) | payer MEDICARE, MEDICAID, SELFPAY | END 2023-06-06 15:21 | disposition home or self-care (01) | LOC: SPT 15:20 | PROVIDERS: PCP Nurse Practitioner; Visit Provider Podiatrist Foot & Ankle Surgery | DX: Z46.89 Encounter for fitting and adjustment of other specified devices (principal); S92.321A Displaced fracture of second metatarsal bone, right foot, initial encounter for closed fracture; X58.XXXA Exposure to other specified factors, initial encounter | CPT/HCPCS: 97760; 99213; L4361 ==

== ENCOUNTER → 2023-06-18 13:52 | Outpatient (BNVA) | payer MEDICARE, MEDICAID, SELFPAY | PROVIDERS: PCP Nurse Practitioner; Visit Provider Podiatrist Foot & Ankle Surgery | DX: S92.321A Displaced fracture of second metatarsal bone, right foot, initial encounter for closed fracture (principal); X58.XXXA Exposure to other specified factors, initial encounter; M25.571 Pain in right ankle and joints of right foot; R60.9 Edema, unspecified | CPT/HCPCS: 73630; 99213 ==

== ENCOUNTER → 2023-06-26 11:23 | Outpatient (BNVA) | payer MEDICARE, MEDICAID, SELFPAY | PROVIDERS: PCP Nurse Practitioner; Visit Provider Nurse Practitioner | DX: Z79.899 Other long term (current) drug therapy (principal); R41.3 Other amnesia; R53.83 Other fatigue; I10 Essential (primary) hypertension | CPT/HCPCS: 80053; 82306; 82607; 82746; 84443; 85025 ==

== ENCOUNTER → 2023-07-02 12:06 | Outpatient (BNVA) | payer MEDICARE, MEDICAID, SELFPAY | PROVIDERS: PCP Nurse Practitioner; Visit Provider Nurse Practitioner | DX: R53.83 Other fatigue (principal); I10 Essential (primary) hypertension; Z79.899 Other long term (current) drug therapy; R41.3 Other amnesia | CPT/HCPCS: 82746; 85651; 86038; 86140; 86431 ==

== ENCOUNTER → 2023-07-26 13:19 | Outpatient (BNVA) | payer MEDICARE, MEDICAID, SELFPAY | PROVIDERS: PCP Nurse Practitioner; Visit Provider Nurse Practitioner Family | DX: S90.31XA Contusion of right foot, initial encounter (principal); S90.121A Contusion of right lesser toe(s) without damage to nail, initial encounter; R06.2 Wheezing; J22 Unspecified acute lower respiratory infection; R05.9 Cough, unspecified; X58.XXXA Exposure to other specified factors, initial encounter | CPT/HCPCS: 71046; 73630 ==

== ENCOUNTER → 2023-08-02 09:58 | Outpatient (BNVA) | payer MEDICARE, MEDICAID, SELFPAY | PROVIDERS: PCP Nurse Practitioner; Visit Provider Anesthesiology Pain Medicine | DX: M51.17 Intervertebral disc disorders with radiculopathy, lumbosacral region (principal); M48.062 Spinal stenosis, lumbar region with neurogenic claudication; M19.90 Unspecified osteoarthritis, unspecified site; M47.816 Spondylosis without myelopathy or radiculopathy, lumbar region; M48.02 Spinal stenosis, cervical region; M47.812 Spondylosis without myelopathy or radiculopathy, cervical region; M25.552 Pain in left hip | CPT/HCPCS: 99214 ==

== ENCOUNTER → 2023-09-18 14:25 | Outpatient (BNVA) | payer MEDICARE, MEDICAID, SELFPAY | PROVIDERS: PCP Nurse Practitioner; Visit Provider Nurse Practitioner Family | DX: R05.9 Cough, unspecified (principal); R11.0 Nausea; U07.1 COVID-19 | CPT/HCPCS: 87426 ==

== ENCOUNTER → 2024-01-30 11:06 | Outpatient (BNVA) | payer MEDICARE, MEDICAID, SELFPAY | PROVIDERS: PCP Nurse Practitioner Family; Visit Provider Nurse Practitioner Family | DX: R68.89 Other general symptoms and signs (principal); J22 Unspecified acute lower respiratory infection; R06.02 Shortness of breath; R06.2 Wheezing | CPT/HCPCS: 71046 ==

== ENCOUNTER 2024-08-19 10:25 | Outpatient (CLI) | payer MEDICARE, MEDICAID, SELFPAY ==
--- NOTE | 2024-08-19 10:30 | CT_ITS ---
WS: [id number] LDCT LUNG CANCER SCREENING TECHNIQUE: Noncontrast CT of the chest with coronal and sagittal reformatted images. CLINICAL INFORMATION: F17.210 - Nicotine dependence, cigarettes, uncomplicated COMPARISON: 2021 DLP: 49.01 mGy.cm DIvol: Mean CTDIvol: 0.80 (mGy) All CT scans at [facility] use at least one of these dose optimization techniques: automat ed exposure control; mA and/or kV adjustment per patient size (includes targeted exams where dose is matched to clinical indication); or iterative reconstruction. FINDINGS: No new suspicious pulmonary parenchymal abnormalities. Calcified granuloma LEFT upper lobe. Calcified LEFT hilar nodes. Normal caliber thoracic aorta. No mediastinal or hilar lymphadenopathy. No axillary lymphadenopathy. Adrenal glands are normal. Tiny esophageal hiatal hernia. Mild thoracic curve. CT/CT lung screening [id number] IMPRESSION: LUNG-RADS: 2-Benign Appearance or Behavior FOLLOW UP: 12 Month: Continue annual screening with LDCT
== END 2024-08-19 10:26 | disposition home or self-care (01) ==
LOC: RAD 10:26
PROVIDERS: PCP Nurse Practitioner Family; Visit Provider Nurse Practitioner Family
DX: Z12.2 Encounter for screening for malignant neoplasm of respiratory organs (principal); J84.10 Pulmonary fibrosis, unspecified; F17.210 Nicotine dependence, cigarettes, uncomplicated; Z80.1 Family history of malignant neoplasm of trachea, bronchus and lung
CPT/HCPCS: 71271

== ENCOUNTER 2024-08-20 11:21 | Outpatient (CLI) | payer MEDICARE, MEDICAID, SELFPAY ==
--- NOTE | 2024-08-20 11:20 | MM_ITS ---
WS: [id number] BILATERAL SCREENING DIGITAL TOMOSYNTHESIS MAMMOGRAM WITH CAD HISTORY: Z12.31 - Encounter for screening mammogram for malignant ... COMPARISON: 12/01/2020, 12/29/2021 Bilateral CC and MLO views with tomosynthesis and synthetic mammography submitted. Computer aided det ection analyzed. Breast composition: The breasts are heterogeneously dense, which may obscure small masses. No suspici ous masses, microcalcifications or architectural distortion. Large tubular vessel in the posterior RI GHT breast. MM/MM [facility] tomosynthesis [id number] IMPRESSION: BI-RADS: 2 - Benign FOLLOW UP: 1 Year Follow-up
== END 2024-08-20 11:22 | disposition home or self-care (01) ==
LOC: MOBLMAM 11:22
PROVIDERS: PCP Nurse Practitioner Family; Visit Provider Nurse Practitioner Family
DX: Z12.31 Encounter for screening mammogram for malignant neoplasm of breast (principal); R92.333 Mammographic heterogeneous density, bilateral breasts
CPT/HCPCS: 77063; 77067

== ENCOUNTER → 2024-10-28 09:57 | Outpatient (BNVA) | payer MEDICARE, MEDICAID, SELFPAY | PROVIDERS: PCP Nurse Practitioner Family; Visit Provider Anesthesiology Pain Medicine | DX: M47.816 Spondylosis without myelopathy or radiculopathy, lumbar region (principal); M79.18 Myalgia, other site; M54.12 Radiculopathy, cervical region; M48.062 Spinal stenosis, lumbar region with neurogenic claudication; M54.2 Cervicalgia; M25.559 Pain in unspecified hip; M19.90 Unspecified osteoarthritis, unspecified site | CPT/HCPCS: 20553; 72110; 99214; J1010; J3490 ==

== ENCOUNTER 2024-10-30 09:21 | Emergency (ER) | payer MEDICARE, MEDICAID, SELFPAY ==
[2024-10-30 09:43] VITALS: BP 151/92; PULSE 60; RESP 17; TEMP 36.4; O2SAT 90
[2024-10-30] MEDS: heparin 5,000 unit/mL INJ 1 mL 4000 UNIT IVP (10:06)
[2024-10-30] MEDS: clopidogrel 300 mg Tablet 600 MG PO (10:06)
[2024-10-30] MEDS: morphine 4 mg/mL SDV 1 mL IVP (10:11)
== END 2024-10-30 09:52 | disposition other institution (70) ==
PROVIDERS: Emergency Provider Family Medicine
DX: Z53.21 Procedure and treatment not carried out due to patient leaving prior to being seen by health care provider (principal)
CPT/HCPCS: 96374; 96375; 99285; J1644; J2270

== ENCOUNTER 2024-10-30 09:27 | Inpatient (IN) | payer MEDICARE, MEDICAID, SELFPAY ==
--- NOTE | 2024-10-30 09:22 | ECG_ITS ---
[employer] Test Date: 2024-10-30 Pat Name: Cathy Bray Department: Room: 104 Gender: Female Program Manager Transportation: : 1970 Requested By: Morteza Dean Order Number: [id number] Reading MD: MORTEZA DEAN Measurements Intervals [place] Rate: 69 P: 58 CT: 141 QRS: 65 QRSD: 82 T: 8 QT: 408 QTc: 439 Interpretive Statements SINUS RHYTHM WITH SINUS ARRHYTHMIA SEPTAL MYOCARDIAL INFARCTION , OF INDETERMINATE AGE [40+ ms Q WAVE IN V1/V2] No previous ECG available for comparison Electronically Signed On 11-01-2024 19:31:28 CARBIDE POWDER PROCESSOR by MORTEZA DEAN [email or web address]
--- NOTE | 2024-10-30 09:28 | XACV_ITS ---
Exam Room: 2 Ht: 165 cm Wt: 68 kg BSA: 1.78 m2 Gender: Female : 1970 Any Known Allergies: Other Exam Priority: Routine Indication(s): - Acute anterior wall TN Procedure(s): Procedure Description: Diagnostic procedure Procedure Description: PCI procedure Procedure Description: Left Heart Catheterization Procedure Description: Left ventriculography Procedure Description: Drug Eluting Coronary Stent Procedure Description: PTCA Procedure Description: Miscellaneous Procedure Description: ACT Procedure Description: Coronary Angiography Jermaine ARREOLA; Diagnostic Cath Status: Emergency Diagnostic Findings * Left Main has no disease. * Circumflex has no disease. * Right Coronary Artery has no disease. * Proximal Left Anterior Descending: total occlusion, VICENTA: 0 flow. * Distal Left Anterior Descending: total occlusion, VICENTA: 0 flow. * 1st Diagonal: obstructive 70% stenosis, VICENTA: 0 flow. * Coronary angiography shows right dominance. PCI Status: Emergency PCI Indication: Immediate PCI for STEMI Interventional Findings * Proximal Left Anterior Descendin% stenosis treated with a AB TREK 2.50X20 RX BALLOON, ALIRIO Sprague KRISTINA 3.5X22 GAYE, and ALIRIO HUANG EUPHORA RX [id number] BALLOON. 0% residual stenosis, VICENTA: 3 flow. * Distal Left Anterior Descendin% stenosis treated with a AB MINI TREK 2.00X20 RX BALLOON. 50% residual stenosis, VICENTA: 2 flow. * 1st Diagonal: 70% stenosis treated with a AB MINI TREK 2.00X20 RX BALLOON. 60% residual stenosis, VICENTA: 2 flow. Conclusions 1. There is total occlusion coronary artery disease with one vessel disease. 2. All gooden are hypokinetic. 3. Mild left ventricular systolic dysfunction. Ejection fraction of 40%. 4. Proximal Left Anterior Descending was treated with a Balloon, Drug Eluting Stent, and Balloon. 5. Distal Left Anterior Descending was treated with a Balloon. 6. 1st Diagonal was treated with a Balloon. Recommendations * Continue current medical management and risk factor modification. Interventional RX Recommendation: PCI w/o planned CABG Diagnostic RX Recommendation: PCI w/o planned CABG Ventriculography Ejection Fraction: 40.0 % Pressures Phase:Rest AO : 155 / 111 ( 130 ) @ 9:49:00 AM 149 / 105 ( 125 ) @ 9:51:00 AM 161 / 112 ( 135 ) @ 10:02:00 AM 126 / 84 ( 104 ) @ 10:14:00 AM 149 / 97 ( 120 ) @ 10:26:00 AM 129 / 96 ( 112 ) @ 10:43:00 AM LV : 155 / 11 / 30 @ 10:54:00 AM Clinical Evaluation EBL: 5mL-10mL Procedural Details Pre-Procedure Time Out. Identified patient by full name and date of as verbalized by the patient/guarantor. Does the consent match the physician's order: N/A Emergent; Informed Consent not obtained due to time critical life threat. Accurate & Complete Informed Consent: N/A Emergent; Informed Consent not obtained due to time critical life threat. Inpatient/Outpatient History & Physical on Chart: N/A Emergent; Informed Consent not obtained due to time critical life threat. If H&P is completed, is and addenduem needed: N/A Emergent; Informed Consent not obtained due to time critical life threat; If yes, is the addendum complete: N/A Emergent; Informed Consent not obtained due to time critical life threat. Visualize and Verify Site with Patient/Guarantor: N/A. Relevant Radiology Images available: N/A Emergent; Informed Consent not obtained due to time critical life threat. The risks, benefits, and alternatives of sedation and/or procedure were discussed by physician. The patient agrees to continue. Procedure started. [facility] Clinical Fraility Score: 4: Vulnerable. Dry Chain Puller Indications: ACS <= 24 hours. Chest Pain Symptom Assessment: Typical Angina Symptoms. Cardiovascular Instability: Yes, if yes, Persistant Ischemic Symptoms. Correct patient, site and procedure confirmed by cath team. Current diagnosis: STEMI. PERRLA. Strong, equal hand scheduling administrator bilaterally. Lungs clear x 5 lobes. IV Site on Arrival: 18 gauge in the right anticubital. IV Site on Arrival: 18 gauge in the left anticubital. IV Fluids: D5/.45% NaCl at KVO. mL infused prior to greens laborer. Oxygen started at 2liters/min via nasal canula. right groin was prepped with chloroprep then draped in the usual sterile fashion. right radial was prepped with chloroprep then draped in the usual sterile fashion. Physician notified. Baseline sample Acquired. HR: 64 BPM. Patient's family unavailable. Equipment: 6F - Radial. Cardiac Cath Pack. ACIST Manifold Kit Model BT 2000. Heparinized Saline (2 units/mL), 1000 mL bag. Physician arrived. Current Diagnosis : STEMI. Physician scrubbed in. Immediate Pre-Procedure Time Out. Correct Patient: N/A Emergent; Informed Consent not obtained due to time critical life threat; Correct Procedure: N/A Emergent; Informed Consent not obtained due to time critical life threat; Correct Site: N/A Emergent; Informed Consent not obtained due to time critical life threat; Correct Patient Position: N/A Emergent; Informed Consent not obtained due to time critical life threat; Correct Supplies: N/A Emergent; Informed Consent not obtained due to time critical life threat; Dried Flammable Prep: N/A Emergent; Informed Consent not obtained due to time critical life threat; Blood Products Available: N/A Emergent; Informed Consent not obtained due to time critical life threat;. Lidocaine 1% infiltrated to the right radial. Arterial access obtained. PCI Indication: STEMI. 6 gambian XB 3.5 guide catheter was inserted over the exchange J wire. ACT drawn. Results 143 seconds. Therapeutic limits - pre-heparin administration 90-150 seconds and monitoring heparin during a vascular procedure >250 seconds. Cineography of the LCA performed. Runthrough guidewire was advanced through the guide catheter to and attempted to cross the lesion in the LAD. Runthrough wire out. Guide catheter out over the exchange J wire. A 5 gambian JR4 catheter in over the exchange J wire. PCI Indication : Immediate PCI for STEMI. Multiple views taken of right coronary artery. Catheter removed over the exchange J wire. 6 gambian XB 3 guide catheter was inserted over the exchange J wire. ACT drawn. Results 245 seconds. Therapeutic limits - pre-heparin administration 90-150 seconds and monitoring heparin during a vascular procedure >250 seconds. A 2nd Runthrough guidewire was advanced through the guide catheter to lesion in the prox LAD. Runthrough guidewire was advanced through the guide catheter to lesion in the prox LAD. 2nd Runthrough guidewire out. 2nd Runthrough guidewire was advanced through the guide catheter to lesion in the prox LAD. 2nd Runthrough guidewire out. 1st Runthrough guidewire was redirected to the diagonal. Runthrough guidewire was advanced through the guide catheter to lesion in the prox LAD. AP pads intact on arrival to the greens laborer. Inflation number : 1 A AB TREK 2.50X20 RX BALLOON was prepped and advanced across the Prox LAD , then inflated to 12 DYANA for 0:15 seconds. Inflation number: 2 The AB TREK 2.50X20 RX BALLOON was reinflated across the Prox LAD, to 12 DYANA for 0:09 seconds. Inflation number: 3 The AB TREK 2.50X20 RX BALLOON was reinflated across the Prox LAD, to 12 DYANA for 0:10 seconds. Inflation number: 4 The AB TREK 2.50X20 RX BALLOON was reinflated across the Prox LAD, to 12 DYANA for 0:09 seconds. Balloon out. Results checked. Inflation Number : 5 A ALIRIO Sprague KRISTINA 3.5X22 GAYE -Lot Number# [id number] was prepped and advanced across the Prox LAD. The stent was deployed at 12 DYANA for 0:25 seconds. Exp. . Stent balloon out over wire. Inflation number : 6 A ALIRIO HUANG EUPHORA RX [id number] BALLOON was prepped and advanced across the Prox LAD , then inflated to 11 DYANA for 0:23 seconds. Inflation number: 7 The MDT NC EUPHORA RX [id number] BALLOON was reinflated across the Prox LAD, to 12 DYANA for 0:18 seconds. Inflation number: 8 The MDT NC EUPHORA RX [id number] BALLOON was reinflated across the Prox LAD, to 7 DYANA for 0:13 seconds. Balloon out. ACT drawn. Results 301 seconds. Therapeutic limits - pre-heparin administration 90-150 seconds and monitoring heparin during a vascular procedure >250 seconds. 2nd Runthrough wire out. Results checked. Inflation number : 1 A AB MINI TREK 2.00X20 RX BALLOON was prepped and advanced across the Dist LAD , then inflated to 6 DYANA for 0:22 seconds. Inflation number: 2 The AB MINI TREK 2.00X20 RX BALLOON was reinflated across the Dist LAD, to 6 DYANA for 0:10 seconds. Results checked. Runthrough wire redirected to the Diagonal. Inflation number: 1 The AB MINI TREK 2.00X20 RX BALLOON was reinflated across the 1st Diag, to 4 DYANA for 0:10 seconds. Balloon out. Results checked. Wire out. Guide catheter out over the exchange J wire. A 5 gambian Angled Pig catheter in over the exchange J wire. EDP Sample taken: LV 155/11,30; HR: 86 BPM; SpO2: 90%. LV hand injection performed in CHIN for a total of 20 mL. Catheter removed over the exchange J wire. Dr. Dean scrubbed out. A TR Band was successful obtaining hemostatsis at the Right Radial artery insertion site. Post Procedure: Pulses reassessed and unchanged. PERRLA. Strong, equal hand scheduling administrator bilaterally. No VTE prophylaxis required. Medication's Wasted: Lidocaine 1% = 18 mL. Medication's Wasted: Nitro = 49.4 mg. Medication's Wasted: Heparin = 2000 units. Medication's Wasted: Other = Versed 1 mg. Medication's Wasted: Other = Fentanyl 25 mcg. Total IV fluids: 70 mL. Post-op diagnosis: PCI of the Proximal LAD s/p 1 GAYE, POBA of the distal LAD and 1st diagonal. Complications: none. Estimated blood loss: 5mL-10mL. Responsiveness - Normal response to verbal stimuli; alert and oriented, PERRLA. Airway - Unaffected, no intervention required; spontaneous ventilation. Circulation: W/N/L, pulses unchanged. Nausea/Vomiting: No. Procedure completed. Patient transferred by bed to 1st floor. Vital chart was stopped. Access Site Site: Right Radial artery Sheath Size: 6 Fr Hemostasis Method: TR Band Hemostasis Success: Successful Procedure Medications Start: 9:38 AM Stop: 9:38 AM Medication: Nitrogylcerin Amount: 10 mcg/min Route: I.V. drip Start: 9:38 AM Stop: 9:38 AM Medication: Zofran (ondansetron) Amount: 4 mg Route: I.V. Start: 9:42 AM Stop: 9:42 AM Medication: Versed Amount: 1 mg Route: I.V. Start: 9:45 AM Stop: 9:45 AM Medication: Versed Amount: 1 mg Route: I.V. Start: 9:46 AM Stop: 9:46 AM Medication: Nitrogylcerin Amount: 200 mcg Route: I.A. Start: 9:50 AM Stop: 9:50 AM Medication: Heparin Amount: 5000 units Route: I.V. Start: 9:52 AM Stop: 9:52 AM Medication: Fentanyl Amount: 25 mcg Route: I.V. Start: 9:53 AM Stop: 9:53 AM Medication: Nitrogylcerin Amount: 20 mcg/min Route: I.V. drip Start: 10:04 AM Stop: 10:04 AM Medication: Fentanyl Amount: 25 mcg Route: I.V. Start: 10:07 AM Stop: 10:07 AM Medication: Heparin Amount: 4000 units Route: I.V. Start: 10:13 AM Stop: 10:13 AM Medication: Nitrogylcerin Amount: 30 mcg/min Route: I.V. drip Start: 10:37 AM Stop: 10:37 AM Medication: Nitrogylcerin Amount: 200 mcg Route: I.C. Start: 10:47 AM Stop: 10:47 AM Medication: Versed Amount: 1 mg Route: I.V. Start: 10:48 AM Stop: 10:48 AM Medication: Nitrogylcerin Amount: 200 mcg Route: I.C. Start: 10:52 AM Stop: 10:52 AM Medication: Aggrastat 12.5 mg/250 mL Amount: 35 ml Route: I.V. bolus Start: 10:24 AM Stop: 10:24 AM Medication: Fentanyl Amount: 25 mcg Route: I.V. I, the attending physician, have reviewed and verified all procedure medications. Yes, all medications given per verbal order Report Signatures Finalized by Morteza Dean MD on 11/13/2024 10:24 PM
--- NOTE | 2024-10-30 09:29 | ED_ITS ---
HPI - Chest Pain General: Chief Complaint: Chest Pain Stated Complaint: stemi Time Seen by Provider: 10/30/24 09:27 History of Present Illness: 54-year-old female presents emergency ro om with complaint of chest pain that began this morning suddenly sharp pain radiating to her right arm associated with shortness of breath. She went to the clinic and EMS was called first EKG the EMS send this was questionable the second 1 however did show what appears to be an ST elevation [place]. She had aspirin in the field 325 mg, she also had 4 sublingual nitro she had improvement but not resolution of her pain with the sublingual nitro. Her blood pressure was maintained. On arrival here she is having increasing chest discomfort. Repeat EKG still shows subtle ST elevation in V2 and 3. Patient was given 4000 of heparin 600 of Plavix started on nitro drip given morphine and Zofran. Associated symptoms: Reports dyspnea Related Data Home Medications ?Medication ?Instructions ?Recorded ?Confirmed cholecalciferol (vitamin D3) 125 125 mcg PO DAILY 11/1510/30/24 mcg (5,000 unit) capsule cyanocobalamin (vitamin B-12) 1,000 mcg sublingual ANALISA LY 11/29/20 10/30/24 1,000 mcg sublingual tablet vitamin B comp and C no.3 15 mg-10 1 cap PO DAILY 11/1510/30/24 mg-50 mg-5 mg-300 mg capsule (B Complex Plus Vitamin C) albuterol sulfate 90 mcg/actuation 2 puff inhalation Q 6H 10/30/24 10/30/24 aerosol inhaler pantoprazole 20 mg tablet,delayed 20 mg PO DAILY 10/3010/30/24 release trazodone 100 mg tablet 100 mg PO DAILY 10/30/24 Previous Rx's ?Medication ?Instructions ?Recorded budesonide-formoterol HFA 80 1 inh inhalation BID 30 d ays #10.2 07/30/24 mcg-4.5 mcg/actuation aerosol grams inhaler (Symbicort) diclofenac sodium 1 % topical gel 2 g topical QID #100 grams 07/30/24 (Voltaren Arthritis Pain) duloxetine 30 mg capsule,delayed 30 mg PO DAILY #90 ca ps 07/30/24 release (Cymbalta) duloxetine 60 mg capsule,delayed See Rx Instructions . Route 07/30/24 release .COMPLEX 90 days #90 caps tizanidine 4 mg tablet 4 mg PO BID PRN muscle spast icity 07/30/24 #60 tabs gabapentin 600 mg tablet 600 mg PO TID #90 tabs 10/29 Allergies Allergy/AdvReac Type Severity Reaction Status Date / Time escitalopram (From Lexapro) AdvReac suicidal Verified 10/30/24 08:46 thoughts fluoxetine (From Prozac) AdvReac suicidal Verified 10/30/24 08:46 thoughts morphine AdvReac Unknown Verified 10/30/24 08:46 Review of Systems Card: Reports: chest pain Resp: Reports: dyspnea PFSH ED PFSH: Medical History Decreased libido Smoker Carpal tunnel syndrome Family history of lung cancer GERD (gastroesophageal reflux disease) Chronic sinusitis Hx of fracture of wrist Carpal tunnel syndrome on both sides Lower respiratory infection Shortness of breath Nausea COVID-19 Flu-like symptoms Breast cancer screening by mammogram Positive MIKEY (antinuclear antibody) Cough Lower respiratory infection Wheezing Contusion of right foot including toes Vitamin B12 deficiency Vitamin D deficiency Outbursts of anger Chronic back pain Fatigue Mixed anxiety and depressive disorder Hx of chest pain Surgical History Hx of tubal ligation S/P complete hysterectomy History of appendectomy Family History Mother CAD (coronary artery disease) Dementia Diabetes Father Cancer Sister Cancer Bleeding disorder Clotting disorder CAD (coronary artery disease) Lung disease Brother Cancer CAD (coronary artery disease) Denies family history of Chronic kidney disease (CKD) Suicide Anesthesia complication Stroke Social History Smoking and tobacco/nicotine status: current every day tobacco/nicotine user cigarettes Packs smoked per day: 1 Alcohol intake: never Substance/Drug Use: never Physical Exam Const: GENERAL APPEARANCE: cooperative ORIENTATION/CONSCIOUSNESS: Yes awake, Yes oriented to person, Yes oriented to place and Yes oriented to time HENMT: COMMON NORMALS: normocephalic, atraumatic and hearing grossly normal bilaterally HEAD & SCALP: normocephalic and atraumatic Resp: COMMON NORMALS: normal respiratory effort, No retractions, No use of accessory muscles and clear to auscultation bilaterally AUSCULTATION: clear to auscultation bilaterally Cardio: COMMON NORMALS: regular rate, regular rhythm and No murmurs present (Cardio) RATE: regular rate RHYTHM: regular rhythm Extremity: COMMON NORMALS: normal to inspection, capillary refill normal, no clubbing, cyanosis or edema, no calf tenderness and no pedal edema Neuro: SENSORIUM/ORIENTATION: Yes oriented to person, Yes oriented to place and Yes oriented to time Skin: COMMON NORMALS: no rashes or lesions noted GENERAL SKIN EXAM: no rashes or lesions noted Course Vital Signs: Vital signs: Vital Signs Temperature 97.6 F 10/30/24 09:32 Pulse Rate 60 10/30/24 09:32 Respiratory Rate 17 10/30/24 09:32 Blood Pressure 151/92 10/30/24 09:32 Pulse Oximetry 90 10/30/24 09:32 Oxygen Delivery Me thod Room Air 10/30/24 09:32 MDM - Chest Pain Medical Decision Making Initial EKG shows ST elevation in V1 to 3 and possibly V4. EMS EKG were more impressive especially the second 1 that they had sent us had definitive ST elevation in V2 and 3. She is still having active crushing chest pain. Patient was given heparin and Plavix she is already received aspirin in the field. She was given morphine and started on a nitro drip titrated up to 10. Dr. Dean was here at the time the patient arrived he seen the patient is taking patient directly to [facility]. Medical Records I reviewed the patient's medical records. Lab Data I reviewed the patient's lab results. No radiology studies performed this visit Discharge Plan Discharge Patient Disposition: Admitted As Inpatient Clinical Impression: ST elevation TX (STEMI) Condition: Stable Coding Level of Care Code ED Placing Judge for Ashley Montejo
[2024-10-30 09:32] VITALS: BP 151/92; PULSE 60; RESP 17; TEMP 36.4; O2SAT 90
--- NOTE | 2024-10-30 09:32 | PM.HP ---
Providers/Chief Complaint Admitting Physician: Morteza Dean MD Primary Care Provider: HOUSTON Perez Chief Complaint: stemi History of Present Illness Cathy Bray is a 54 year old female who came into the ER via EMS due to she was at home and developed chest pain at the center of her chest that radiated to her arm. EMS arrived she was given nitro and route. She still having chest pain at the time of our exam. Original EKG and route showed some slight possible early repolarization in V3 V4. Her repeat EKG showed worsening ST elevation in the anterior lateral leads. Patient was given Medications/Allergies Home Medications ?Medication ?Instructions ?Recorded ?Confirmed ?Last Taken ?Type cholecalciferol (vitamin D3) 125 125 mcg PO DAILY 11/29/20 10/30/24 Unknown History mcg (5,000 unit) capsule cyanocobalamin (vitamin B-12) 1,000 mcg sublingual DAILY 11/29/20 10/30/24 Unknown History 1,000 mcg sublingual tablet vitamin B comp and C no.3 15 mg-10 1 cap PO DAILY 11/29/20 10/30/24 Unknown History mg-50 mg-5 mg-300 mg capsule (B Complex Plus Vitamin C) albuterol sulfate 90 mcg/actuation See Rx Instructions .Route 07/30/24 10/30/24 Unknown Rx aerosol inhaler .COMPLEX #8.5 grams budesonide-formoterol HFA 80 1 inh inhalation BID 30 days #10.2 07/30/24 10/30/24 Unknown Rx mcg-4.5 mcg/actuation aerosol grams inhaler (Symbicort) diclofenac sodium 1 % topical gel 2 g topical QID #100 grams 07/30/24 10/30/24 Unknown Rx (Voltaren Arthritis Pain) duloxetine 30 mg capsule,delayed 30 mg PO DAILY #90 caps 07/30/24 10/30/24 Unknown Rx release (Cymbalta) duloxetine 60 mg capsule,delayed See Rx Instructions .Route 07/30/24 10/30/24 Unknown Rx release .COMPLEX 90 days #90 caps pantoprazole 20 mg tablet,delayed See Rx Instructions .Route 07/30/24 10/30/24 Unknown Rx release .COMPLEX #30 tabs prednisone 20 mg tablet 40 mg (2 x 20 mg) PO DAILY 5 days 07/30/24 10/30/24 Unknown Rx #10 tabs tizanidine 4 mg tablet 4 mg PO BID PRN muscle spasticity 07/30/24 10/30/24 Unknown Rx #60 tabs trazodone 100 mg tablet See Rx Instructions .Route 07/30/24 10/30/24 Unknown Rx .COMPLEX #30 tabs prednisone 20 mg tablet 20 mg PO DAILY #20 tabs 10/14/24 10/30/24 Unknown Rx gabapentin 600 mg tablet 600 mg PO TID #90 tabs 10/29/24 10/30/24 Unknown Rx Allergies Allergy/AdvReac Type Severity Reaction Status Date / Time escitalopram (From Lexapro) AdvReac suicidal Verified 10/30/24 08:46 thoughts fluoxetine (From Prozac) AdvReac suicidal Verified 10/30/24 08:46 thoughts morphine AdvReac Unknown Verified 10/30/24 08:46 PFSH Acute PFSH: Medical History Decreased libido Smoker Carpal tunnel syndrome Family history of lung cancer GERD (gastroesophageal reflux disease) Chronic sinusitis Hx of fracture of wrist Carpal tunnel syndrome on both sides Lower respiratory infection Shortness of breath Nausea COVID-19 Flu-like symptoms Breast cancer screening by mammogram Positive MIKEY (antinuclear antibody) Cough Lower respiratory infection Wheezing Contusion of right foot including toes Vitamin B12 deficiency Vitamin D deficiency Outbursts of anger Chronic back pain Fatigue Mixed anxiety and depressive disorder Hx of chest pain Surgical History Hx of tubal ligation S/P complete hysterectomy History of appendectomy Family History Mother CAD (coronary artery disease) Dementia Diabetes Father Cancer Sister Cancer Bleeding disorder Clotting disorder CAD (coronary artery disease) Lung disease Brother Cancer CAD (coronary artery disease) Denies family history of Chronic kidney disease (CKD) Suicide Anesthesia complication Stroke Social History Smoking and tobacco/nicotine status: current every day tobacco/nicotine user cigarettes Packs smoked per day: 1 Alcohol intake: never Substance/Drug Use: never A&P PDMP PDMP Reviewed: Not Reviewed Coding Level of Care Code Acute Code for Chg Fwd
--- NOTE | 2024-10-30 09:40 | P.HP_ITS ---
<Statement entered by Morteza Dean MD - 10/30/24 19:30> Patient was evaluated and cared for in conjunction with an advanced practice practitioner. I personally examined the patient and reviewed the chart and all pertinent data including imaging, telemetry, and laboratory results. I discussed the patient in detail with the advanced practice practitioner. Please see their note for complete H&P testing result and agreed upon plan of care for the patient. 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 Excellent angiographic result VICENTA-3 flow was restored. GENERAL: Patient is alert, awake and oriented x3. HEART: Regular S1 and S2. No murmur, rub or gallop. LUNGS: Clear to auscultate bilaterally. CENTRAL NERVOUS SYSTEM: Grossly nonfocal. EXTREMITIES: Lower extremities with out edema bilaterally. Assessment and plan ST elevation UT status post drug-eluting stent to Proximal LAD and balloon angioplasty to distal diagonal and LAD for embolic occlusion, excellent angiographic result with VICENTA-3 flow was restored in both arteries. Severe LV dysfunction with ejection fraction less than 35% by ventriculography Moderately elevated left ventricular end-diastolic pressure IV Lasix 40 mg twice a day Replenish potassium Continue aspirin and statin and Plavix, add beta-adam and Entresto. Echocardiogram will be obtained to assess LV function Further plan will be devised as per progress of the patient Providers/Chief Complaint Admitting Physician: Morteza Dean MD Primary Care Provider: HOUSTON Perez Chief Complaint: stemi History of Present Illness Cathy Bray is a 54 year old female who developed chest pain earlier this morning in her home and it radiated to her arm. This was severe. She called EMS. EMS gave nitro and route. She had aspirin in the field 325 mg, she also had 4 sublingual nitro she had improvement but not resolution of her pain with the sublingual nitro. Her blood pressure was maintained. On arrival here she is having increasing chest discomfort. Repeat EKG still shows ST elevation in V2 and [address] elevation UT. Patient was given 4000 of heparin 600 of Plavix started on nitro drip given morphine and Zofran and taken to the Clinical Psychologist Licensed immediately. On our exam she was still having chest pain. Vital signs were stable. She does have a history of [id number] smoking history. History of hypertension. No significant heart disease per patient. Review of Systems Narrative: CONSTITUTIONAL: No fever chills weight loss or gain or night sweats. HEENT: Normocephalic, atraumatic. RESPIRATORY: No cough, sputum, hemoptysis or wheezing. CARDIOVASCULAR: Reports chest pain at rest, denies PND, orthopnea, lower extremity edema, presyncope or syncope. GI: no nausea vomiting diarrhea. 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 MUSCULOSKELETAL: No knee or joint pain or rashes. Medications/Allergies Home Medications ?Medication ?Instructions ?Recorded ?Confirmed ?Last Taken ?Type cholecalciferol (vitamin D3) 125 125 mcg PO DAILY 11/1510/30/24 Unknown Hi story mcg (5,000 unit) capsule cyanocobalamin (vitamin B-12) 1,000 mcg sublingual ANALISA LY 11/29/20 10/30/24 Unknown History 1,000 mcg sublingual tablet vitamin B comp and C no.3 15 mg-10 1 cap PO DAILY 11/1510/30/24 Unknown History mg-50 mg-5 mg-300 mg capsule (B Complex Plus Vitamin C) budesonide-formoterol HFA 80 1 inh inhalation BID 30 d ays #10.2 07/30/24 10/30/24 Unknown Rx mcg-4.5 mcg/actuation aerosol grams inhaler (Symbicort) diclofenac sodium 1 % topical gel 2 g topical QID #100 grams 07/30/24 10/30/24 Unknown Rx (Voltaren Arthritis Pain) duloxetine 30 mg capsule,delayed 30 mg PO DAILY #90 ca ps 07/30/24 10/30/24 Unknown Rx release (Cymbalta) duloxetine 60 mg capsule,delayed See Rx Instructions . Route 07/30/24 10/30/24 Unknown Rx release .COMPLEX 90 days #90 caps tizanidine 4 mg tablet 4 mg PO BID PRN muscle spast icity 07/30/24 10/30/24 Unknown Rx #60 tabs gabapentin 600 mg tablet 600 mg PO TID #90 tabs 10/2910/30/24 Unknown Rx albuterol sulfate 90 mcg/actuation 2 puff inhalation Q 6H 10/30/24 10/30/24 Unknown History aerosol inhaler pantoprazole 20 mg tablet,delayed 20 mg PO DAILY 10/3010/30/24 Unknown History release trazodone 100 mg tablet 100 mg PO DAILY 10/30/24 Unknown History Allergies Allergy/AdvReac Type Severity Reaction Status Date / Time escitalopram (From Lexapro) AdvReac suicidal Verified 10/30/24 08:46 thoughts fluoxetine (From Prozac) AdvReac suicidal Verified 10/30/24 08:46 thoughts morphine AdvReac Unknown Verified 10/30/24 08:46 PFSH Acute PFSH: Medical History Decreased libido Smoker Carpal tunnel syndrome Family history of lung cancer GERD (gastroesophageal reflux disease) Chronic sinusitis Hx of fracture of wrist Carpal tunnel syndrome on both sides Lower respiratory infection Shortness of breath Nausea COVID-19 Flu-like symptoms Breast cancer screening by mammogram Positive MIKEY (antinuclear antibody) Cough Lower respiratory infection Wheezing Contusion of right foot including toes Vitamin B12 deficiency Vitamin D deficiency Outbursts of anger Chronic back pain Fatigue Mixed anxiety and depressive disorder Hx of chest pain Surgical History Hx of tubal ligation S/P complete hysterectomy History of appendectomy Family History Mother CAD (coronary artery disease) Dementia Diabetes Father Cancer Sister Cancer Bleeding disorder Clotting disorder CAD (coronary artery disease) Lung disease Brother Cancer CAD (coronary artery disease) Denies family history of Chronic kidney disease (CKD) Suicide Anesthesia complication Stroke Social History Smoking and tobacco/nicotine status: current every day tobacco/nicotine user cigarettes Packs smoked per day: 1 Alcohol intake: never Substance/Drug Use: never Vitals/I&O/Wt Last Vital Signs Temp 97.6 F 10/30/24 09:32 Pulse 60 10/30/24 09:32 Resp 17 10/30/24 09:32 BP 151/92 10/30/24 09:32 Pulse Ox 90 10/30/24 09:32 O2 Del Method Room Air 10/30/24 09:32 Weight last 48 hrs Weight 215 lb Physical Exam Narrative: GENERAL: Patient is alert, awake and oriented x3., chest pain present at center of chest HEART: Regular S1 and S2. No murmur, rub or gallop. LUNGS: Clear to auscultate bilaterally. CENTRAL NERVOUS SYSTEM: Grossly nonfocal. EXTREMITIES: Lower extremities with out edema bilaterally. A&P Assessment and plan (1) ST elevation myocardial infarction (STEMI): (2) Hypertension: (3) Smoking greater than 10 pack years: (4) Elevated blood pressure reading: Plan At this time patient has anterior lateral ST elevation UT. Will take her to the Clinical Psychologist Licensed now for intervention. PDMP PDMP Reviewed: Not Reviewed Attestations Medical Necessity Statement*: Patient stay expected to cross 2 midnights due to above plan of care. Coding Level of Care Code Acute Code for [facility] Diagnoses ST elevation myocardial infarction (STEMI) I21.3 Hypertension I10 Smoking greater than 10 pack years F17.210 Elevated blood pressure reading R03.0
--- NOTE | 2024-10-30 09:40 | PC.PHAR ---
called Nitro PDF [facility] for med list
--- NOTE | 2024-10-30 10:55 | PC.NURSE ---
VERBAL ORDERS FROM DR. TREJO TO CREATE ANTWAN REESE ACCOUNT DUE TO PT BEING A POSSIBLE STEMI ALERT IN ORDER TO GET PRE-HOSPITAL SUPERVISOR MEDICATIONS. ADDITIONAL ACCOUNT CREATED ONCE PT ARRIVED DUE TO KNOWING PT INFORMATION. 4000 UNIT HEPARIN IVP AND 600MG PLAVIX DOCUMENTED ON , WHICH IS CURRENTLY NOT BEING USED DUE TO PT HAVING 2 ACCOUNTS.
[2024-10-30 11:05] VITALS: BP 153/103; PULSE 78; PULSE 84; RESP 24; O2SAT 98
--- NOTE | 2024-10-30 11:10 | PM.PROC ---
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 It was 100% occluded in the proximal segment. It was treated with balloon angioplasty followed by drug-eluting stent placement. Excellent angiographic result with VICENTA-3 flow was restored. RCA and circumflex has luminal irregularity without significant stenosis. Left ventricular end-diastolic pressure was 31 mmHg. Left ventricular ejection fraction was 35% Plan Continue IV fluids since patient got high contrast due to difficult anatomy, will continue 75 mL/h for next 1 L. Will continue to monitor the patient if becomes short of breath I may will use IV 40 mg of Lasix. Echocardiogram will be obtained. Continue aspirin and statin Once stable blood pressure russell we will introduce carvedilol and Entresto. Smoking cessation education will be given. Full note to be dictated. Coding Level of Care Code Acute Code for [facility]
[2024-10-30] MEDS: sodium chloride 0.9% 1,000 ML 75 ML IV (11:30)
--- NOTE | 2024-10-30 11:30 | PC.NURSE ---
Patient arrived to CSU from tailings dam laborer at appprox 11:15am. Patient is alert awake and appropriate. Patient has been oriented to room and surroundings. Patient was a STEMI and emergently went to aquatic laborer. Patient has TR band to right wrist. Site observed with tailings dam laborer team present. Patient states that she is having minimal chest pain and rates this as a 4/10. Patient educated to alert nurse if pain changes or becomes worse accompanied by SOB> Patient aware of activity restrictions and family now at bedside. Patient has call michelle in reach. Nurse will continue to monitor q15m and remove TR band per protocol.
[2024-10-30 12:05] LABS: Basophils # 0.1 10^3/uL (0.0-0.1); Basophils % 0.6 %; Eosinophils # 0.1 10^3/uL (0.0-0.8); Eosinophils % 0.4 %; Hematocrit 43.4 % (36-47); Lymphocytes # 1.6 10^3/uL (0.8-4.8); Lymphocytes % 10.9 %; Mean Corpuscular HGB Conc 31.8 g/dL (30-55); Mean Corpuscular Hemoglobin 32.5 pg (27-33); Mean Corpuscular Volume 102.4 fl (85-98); Mean Platelet Volume 8.5 fL (7.4-10.4); Monocytes # 1.1 10^3/uL (0.2-0.9); Monocytes % 7.1 %; Neutrophils # 11.95 10^3/uL (1.8-7.7); Neutrophils % 79.9 %; Nucleated Red Blood Cells % 0 %; Platelet Count 292 10^3/cmm (157-399); Red Blood Count 4.24 10^6/uL (3.85-5.65); Red Cell Distribution Width 14.2 % (12.1-15.1); White Blood Count 14.97 10^3/uL (3.29-11.43)
[2024-10-30 12:34] LABS: Alanine Aminotransferase 14 U/L (0-33); Albumin Level 4.3 g/dL (3.5-5.2); Alkaline Phosphatase 83 U/L (35-105); Blood Urea Nitrogen 15 mg/dL (6-20); Calcium 9.1 mg/dL (8.5-10.5); Carbon Dioxide 18 mmol/L (22-29); Chloride 91 mmol/L (98-107); Creatinine Clr Calc Pharmacy 90.7484; Globulin 2.6 g/dL (1.3-4.6); Glomerular Filtration Rate 74.2 mL/min (90-130); Glucose 139 mg/dL (65-115); Osmolality Calculated 273 mOsm/kg (285-295); Sodium 130 mmol/L (136-145); Total Bilirubin 0.3 mg/dL (0.15-1.2); Total Protein 6.9 g/dL (6.6-8.7)
[2024-10-30 12:40] LABS: Anion Gap 25.4 (5-19); Aspartate Amino Transferase 20 U/L (0-32); Potassium 4.4 mmol/L (3.5-5.1)
[2024-10-30 12:51] LABS: Troponin T (5th) Once 199 ng/L (0-10)
--- NOTE | 2024-10-30 13:00 | PC.NURSE ---
Patient appears short of breath upon auscultation crackles noted in right lung field. Fluids paused and physician notified. One time order of lasix 40mg IVP placed. Nurse will continue to monitor.
[2024-10-30] MEDS: FUROsemide 10 mg/mL SDV 4mL 40 MG IVP (13:07)
[2024-10-30] MEDS: nicotine 21 mg Patch 1 PATCH TRANSDERMA (14:04)
[2024-10-30 15:21] VITALS: BP 147/103; PULSE 85; RESP 22; TEMP 36.9; O2SAT 94
[2024-10-30] MEDS: HYDROcodone-acetaminophen 5-325 mg Tablet 1 TAB PO ×2 (15:59→23:12)
--- NOTE | 2024-10-30 16:00 | PC.NURSE ---
9hydrocodone 5-325 given for pain in the chest that patient states goes front to back.
[2024-10-30 19:10] VITALS: BP 144/91; PULSE 94; RESP 20; TEMP 37.1; O2SAT 94
[2024-10-30] MEDS: atorvastatin 40 mg Tablet 80 MG PO (20:29)
[2024-10-30 22:00] VITALS: PULSE 87
[2024-10-30] MEDS: pantoprazole DR 40 mg Tablet PO (23:49)
[2024-10-30] MEDS: temazepam 15 mg Capsule PO (23:49)
[2024-10-30 23:53] VITALS: BP 143/102; PULSE 92; RESP 14; TEMP 36.8; O2SAT 92
[2024-10-31] VITALS (56 sets, daily range): BP systolic 91–137; BP diastolic 72–96; PULSE 0–119; RESP 14–33; TEMP 36.5–36.9; O2SAT 90–97
[2024-10-31 03:01] LABS: Basophils # 0.1 10^3/uL (0.0-0.1); Basophils % 0.6 %; Eosinophils # 0.2 10^3/uL (0.0-0.8); Eosinophils % 1.1 %; Hematocrit 42.5 % (36-47); Lymphocytes # 2.1 10^3/uL (0.8-4.8); Lymphocytes % 15.9 %; Mean Corpuscular HGB Conc 34.1 g/dL (30-55); Mean Corpuscular Volume 96.8 fl (85-98); Mean Platelet Volume 8.7 fL (7.4-10.4); Monocytes # 1.1 10^3/uL (0.2-0.9); Monocytes % 8.2 %; Neutrophils # 9.65 10^3/uL (1.8-7.7); Neutrophils % 73.9 %; Nucleated Red Blood Cells % 0 %; Platelet Count 303 10^3/cmm (157-399); Red Blood Count 4.39 10^6/uL (3.85-5.65); Red Cell Distribution Width 13.6 % (12.1-15.1); White Blood Count 13.07 10^3/uL (3.29-11.43)
[2024-10-31 03:31] LABS: Blood Urea Nitrogen 15 mg/dL (6-20); Calcium 10.8 mg/dL (8.5-10.5); Carbon Dioxide 27 mmol/L (22-29); Chloride 88 mmol/L (98-107); Creatinine Clr Calc Pharmacy 90.7484; Glomerular Filtration Rate 74.2 mL/min (90-130); Glucose 97 mg/dL (65-115); Osmolality Calculated 275 mOsm/kg (285-295); Sodium 132 mmol/L (136-145)
--- NOTE | 2024-10-31 08:00 | USCV_ITS ---
Cathy Bray Age: 54 Gender: F : 1970 Exam Date: 10/31/2024 09:30 Ordering Phys: Qiana Martinez NP Technologist: Leonard Lao [place] [facility] [place]: stemi BP: 121 / 88 HR: 102 Rhythm: Sinus Technical Quality: Adequate MEASUREMENTS (Male / Female) Normal Values 2D ECHO LV Diastolic Diameter PLAX 3.6 cm 4.2 - 5.9 / 3.9 - 5.3 cm IVS Diastolic Thickness 0.7 cm 0.6 - 1.0 / 0.6 - 0.9 cm IVS Systolic Thickness 1.1 cm LVPW Diastolic Thickness 1.8 cm 0.6 - 1.0 / 0.6 - 0.9 cm LVPW Systolic Thickness 1.7 cm LVOT Diameter 2.0 cm LV Ejection Fraction 2D Teich 48.5 % LV Ejection Fraction MOD 4C 40.1 % LV Ejection Fraction MOD 2C 49.8 % LV Ejection Fraction 2C AL 50.4 % LA Diameter 3.2 cm RA Systolic Volume 4C AL 16.6 ml RA Systolic Volume 4C MOD 16.3 ml LA Sys Volume AL 27.8 cm cubed LA Sys Volume Index AL 12.9 cm cubed/m squared Aorta at Sinotubular Diameter 2.1 cm IVC Diameter 1.6 cm M-MODE LA Ao Ratio MM 1.3 AV Cusp Separation MM 1.7 cm DOPPLER AV Peak Velocity 147.0 cm/s LVOT Peak Velocity 95.0 cm/s AV Area Cont Eq vti 2.8 cm squared AV Area Cont Eq pk 2.0 cm squared MV Peak Velocity 86.0 cm/s MV Area PHT 7.7 cm squared Mitral E to A Ratio 0.6 TV Peak Velocity 324.3 cm/s TR Peak Velocity 382.0 cm/s TR Peak Gradient 58.4 mmHg TR Mean Velocity 318.0 cm/s TR Mean Gradient 42.6 mmHg TR Velocity Time Integral 77.4 cm PV Peak Velocity 136.5 cm/s RV Ejection Time 0.2 s FINDINGS Left Ventricle Severe hypokinesis of the mid and apical septum and the anteroseptal segments. Moderate diffuse hypokinesia of the LV apex. LV ejection fraction of 41%. Grade I/IV diastolic dysfunction (abnormal relaxation filling pattern), normal to mildly elevated filling pressures. Right Ventricle The right ventricle is normal in size and function. Right Atrium The right atrium is normal in size. Left Atrium The left atrium is normal in size. Mitral Valve No gross abnormalities noted Aortic Valve Thickened aortic valve. Tricuspid Valve Trace tricuspid valve regurgitation. Estimated pulmonary artery peak systolic pressure 45 mm of medical Pulmonic Valve Pulmonic valve not well visualized. Pericardium Normal pericardium without effusion. Aorta Normal ascending aorta dimension. IVC Inferior vena cava not visualized. CONCLUSIONS Severe hypokinesis of the mid and apical septum and the anteroseptal segments. Moderate diffuse hypokinesia of the LV apex. LV ejection fraction of 41%. Grade I/IV diastolic dysfunction (abnormal relaxation filling pattern), normal to mildly elevated filling pressures. Thickened aortic valve. Trace tricuspid valve regurgitation. Estimated pulmonary artery peak systolic pressure 45 mm of medical There is no pericardial effusion. There are no intracardiac masses. Compared to the study from 12/17/2020, there is a significant decline in the LV ejection fraction from 50-55 % to 41% Dr Rupa Ackerman MD [facility] (Electronically Signed) Final Date: 31 October 2024 13:36 S
[2024-10-31] MEDS: HYDROcodone-acetaminophen 5-325 mg Tablet 1 TAB PO ×2 (08:07→13:34)
[2024-10-31] MEDS: clopidogrel 75 mg Tablet PO (08:07)
[2024-10-31] MEDS: aspirin 81 mg EC Tablet PO (08:07)
[2024-10-31] MEDS: nicotine 21 mg Patch 1 PATCH TRANSDERMA (08:08)
[2024-10-31] MEDS: pantoprazole DR 40 mg Tablet PO ×2 (08:08→16:48)
[2024-10-31] MEDS: carvedilol 3.125 mg Tablet PO (09:56)
--- NOTE | 2024-10-31 11:52 | P.PN_ITS ---
<Statement entered by Morteza Dean MD - 11/10/24 00:52> Patient was evaluated and cared for in conjunction with an advanced practice practitioner. I personally examined the patient and reviewed the chart and all pertinent data including imaging, telemetry, and laboratory results. I discussed the patient in detail with the advanced practice practitioner. Please see their note for complete H&P testing result and agreed upon plan of care for the patient Subjective 2 Subjective: Patient status post stenting to the LAD. Overall she is doing well without complaints. Blood pressure is stable. Creatinine stable at 0.8. She has been started on carvedilol Vitals/I&O/Wt Last Vital Signs Temp 97.8 F 10/31/24 11:48 Pulse 90 10/31/24 11:48 Resp 23 H 10/31/24 11:48 BP 120/79 10/31/24 11:48 Pulse Ox 95 10/31/24 11:48 O2 Del Method Room Air 10/31/24 11:48 10/30/24 10/31/24 10/31/24 22:59 06:59 14:59 Intake Total 240 / 240 Balance 240 / 240 Weight last 48 hrs Weight 215 lb Physical Exam 2 Narrative: GENERAL: Patient is alert, awake and oriented x3., chest pain present at center of chest HEART: Regular S1 and S2. No murmur, rub or gallop. LUNGS: Clear to auscultate bilaterally. CENTRAL NERVOUS SYSTEM: Grossly nonfocal. EXTREMITIES: Lower extremities with out edema bilaterally. Data 10/31/24 02:26 10/31/24 02:26 A&P Assessment and plan (1) ST elevation myocardial infarction (STEMI): (2) Hypertension: (3) Smoking greater than 10 pack years: (4) Elevated blood pressure reading: Plan Patient's heart function is 35%. Blood pressure is stable. Will go ahead and add Entresto. Will monitor blood pressure. Patient doing well but needs another day of recovery. We will order a LifeVest today as she has agreed for this as well. Continue aspirin Plavix high-dose statin and carvedilol PDMP PDMP Reviewed: Not Reviewed Attestations 2 Medical Necessity Statement*: Patient stay expected to cross 2 midnights due to above defined care Coding Level of Care Code Acute Code for [facility] Fwd Diagnoses ST elevation myocardial infarction (STEMI) I21.3 Hypertension I10 Smoking greater than 10 pack years F17.210 Elevated blood pressure reading R03.0
[2024-10-31] MEDS: FUROsemide 40 mg Tablet PO (16:47)
[2024-10-31] MEDS: potassium chloride ER 20 mEq Tablet PO (16:48)
[2024-10-31] MEDS: sacubitril/valsartan 24-26 mg Tablet 1 EACH PO (17:44)
[2024-10-31] MEDS: atorvastatin 40 mg Tablet 80 MG PO (20:59)
[2024-11-01] VITALS (70 sets, daily range): BP systolic 77–111; BP diastolic 58–77; PULSE 79–119; RESP 13–29; TEMP 36.5–36.7; O2SAT 88–96
[2024-11-01] MEDS: HYDROcodone-acetaminophen 5-325 mg Tablet 1 TAB PO ×2 (04:01→16:24)
[2024-11-01 04:06] LABS: Basophils # 0.1 10^3/uL (0.0-0.1); Basophils % 0.8 %; Eosinophils # 0.2 10^3/uL (0.0-0.8); Eosinophils % 1.9 %; Hematocrit 43.7 % (36-47); Lymphocytes # 1.9 10^3/uL (0.8-4.8); Lymphocytes % 24.5 %; Mean Corpuscular HGB Conc 33.9 g/dL (30-55); Mean Corpuscular Hemoglobin 32.7 pg (27-33); Mean Corpuscular Volume 96.5 fl (85-98); Mean Platelet Volume 8.8 fL (7.4-10.4); Monocytes # 0.6 10^3/uL (0.2-0.9); Monocytes % 8.2 %; Neutrophils # 4.96 10^3/uL (1.8-7.7); Neutrophils % 64.2 %; Nucleated Red Blood Cells % 0 %; Platelet Count 297 10^3/cmm (157-399); Red Blood Count 4.53 10^6/uL (3.85-5.65); Red Cell Distribution Width 13.5 % (12.1-15.1); White Blood Count 7.72 10^3/uL (3.29-11.43)
[2024-11-01 04:26] LABS: Blood Urea Nitrogen 19 mg/dL (6-20); Calcium 10.1 mg/dL (8.5-10.5); Carbon Dioxide 25 mmol/L (22-29); Chloride 93 mmol/L (98-107); Creatinine Clr Calc Pharmacy 72.5987; Glomerular Filtration Rate 57.4 mL/min (90-130); Glucose 124 mg/dL (65-115); Osmolality Calculated 286 mOsm/kg (285-295); Sodium 136 mmol/L (136-145)
--- NOTE | 2024-11-01 07:24 | PC.NURSE ---
Patient stated she was in severe pain in her lower baack. BP was running 90's/60's throughout the shift. Dr Garcia notified about administering hydr 5-325mg. Gave orders to give medication for pain. Patient pain 9 on 1-[address] Garcia notified.
--- NOTE | 2024-11-01 08:28 | ECG_ITS ---
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1970 Requested By: Morteza Dean Order Number: [id number] Reading MD: MORTEZA DEAN Measurements Intervals [place] Rate: 96 P: 67 WA: 116 QRS: 20 QRSD: 77 T: 154 QT: 362 QTc: 458 Interpretive Statements SINUS RHYTHM WITH SHORT WA INTERVAL LOW QRS VOLTAGE IN EXTREMITY LEADS [QRS DEFLECTION < 0.5 mV IN LIMB LEADS] PATTERN CONSISTENT WITH PULMONARY DISEASE ST DEVIATION AND MARKED T-WAVE ABNORMALITY, CONSIDER ANTEROLATERAL ISCHEMIA [-0.5+ mV T-WAVE IN I/aVL/V3-V6] Compared to ECG 10/30/2024 09:22:41 Short WA interval now present Low QRS voltage now present T-wave abnormality now present Possible ischemia now present Sinus arrhythmia no longer present Myocardial infarct finding no longer present Electronically Signed On 11-01-2024 19:32:14 CAREER PROFESSIONAL by MORTEZA DEAN [id number]
[2024-11-01] MEDS: nicotine 21 mg Patch 1 PATCH TRANSDERMA (08:59)
[2024-11-01] MEDS: aspirin 81 mg EC Tablet PO (08:59)
[2024-11-01] MEDS: metoprolol succinate ER (24 HR) 25 mg Tablet PO (08:59)
[2024-11-01] MEDS: pantoprazole DR 40 mg Tablet PO ×2 (09:00→16:24)
[2024-11-01] MEDS: clopidogrel 75 mg Tablet PO (09:00)
--- NOTE | 2024-11-01 13:38 | P.PN_ITS ---
Subjective 2 Subjective: Denies any chest pain. Patient has hypertension this morning and later tachycardic therefore we will hold Entresto Vitals/I&O/Wt Last Vital Signs Temp 97.7 F 11/01/24 04:27 Pulse 103 H 11/01/24 13:08 Resp 24 H 11/01/24 13:08 BP 89/58 11/01/24 13:08 Pulse Ox 95 11/01/24 13:08 O2 Del Method Room Air 11/01/24 13:08 10/31/24 11/01/24 11/01/24 22:59 06:59 14:59 Intake Total 820 / 1060 200 / 1260 Balance 820 / 1060 200 / 1260 Physical Exam 2 Const: OTHER: GENERAL: Patient is alert, awake and oriented x3. HEART: Regular S1 and S2. No murmur, rub or gallop. LUNGS: Clear to auscultate bilaterally. CENTRAL NERVOUS SYSTEM: Grossly nonfocal. EXTREMITIES: Lower extremities with out edema bilaterally. Data 11/01/24 02:33 11/01/24 02:33 A&P Assessment and plan (1) ST elevation myocardial infarction (STEMI): (2) Hypertension: (3) Smoking greater than 10 pack years: (4) Elevated blood pressure reading: Plan Patient has severe left ventricle dysfunction less than 35% by ventriculography, echocardiogram showed ejection fraction 41%. Based upon ventriculogram less than 35% LifeVest was initiated Continue aspirin statin, Coreg was switched to metoprolol succinate because of low blood pressure and tachycardia I will reduce Entresto to once a day due to hypotension Will reduce Lasix to 20 mg once a day Patient will be requiring continuation hospitalization for 1 more day PDMP PDMP Reviewed: Not Reviewed Attestations 2 Medical Necessity Statement*: Patient require continuation hospitalization for 1 more day for optimization of medicine Coding Level of Care Code Acute Code for [facility] Diagnoses ST elevation myocardial infarction (STEMI) I21.3 Hypertension I10 Smoking greater than 10 pack years F17.210 Elevated blood pressure reading R03.0
[2024-11-01] MEDS: duloxetine 60 mg Capsule PO (20:29)
[2024-11-01] MEDS: atorvastatin 40 mg Tablet 80 MG PO (20:29)
[2024-11-01] MEDS: duloxetine 30 mg Capsule PO (20:29)
[2024-11-02] VITALS (9 sets, daily range): BP systolic 101–113; BP diastolic 65–82; PULSE 73–83; RESP 11–22; TEMP 36.4–36.8; O2SAT 91–95
[2024-11-02] MEDS: gabapentin 300 mg Capsule 600 MG PO (00:28)
[2024-11-02] MEDS: nicotine 2 mg Gum BUCCAL (00:45)
[2024-11-02] MEDS: pantoprazole DR 40 mg Tablet PO (09:08)
[2024-11-02] MEDS: aspirin 81 mg EC Tablet PO (09:08)
[2024-11-02] MEDS: metoprolol succinate ER (24 HR) 25 mg Tablet PO (09:08)
[2024-11-02] MEDS: clopidogrel 75 mg Tablet PO (09:08)
[2024-11-02] MEDS: nicotine 21 mg Patch 1 PATCH TRANSDERMA (09:10)
[2024-11-02] MEDS: HYDROcodone-acetaminophen 5-325 mg Tablet 1 TAB PO (09:13)
--- NOTE | 2024-11-02 14:54 | PM.DCS ---
Discharge Providers Date of Admission: 10/30/24 09:35 Date of Discharge: November 02, 2024 Attending Provider at Admission: Morteza Dean MD Attending Provider at Discharge: Morteza Dean MD Consults: 54-year-old female past medical history significant for continues tobacco abuse hypertension hyperlipidemia presented with ST elevation DC. She was noted to have 100% occluded LAD treated with single drug-eluting stent. Ejection fraction by left ventriculography was less than 35%. Patient was started on dual antiplatelet therapy and medicine were optimized for new onset of heart failure LV dysfunction. Patient did not tolerate Entresto initially therefore it was reduced to once a day. Currently she is doing fine from cardiovascular perspective she is euvolemic, advised to take metoprolol once a day, Entresto in the night, continue aspirin and statin and Plavix. Take Lasix as needed if gain more than 3 pounds in 2 consecutive days. Heart failure education will be given. Patient is being discharged today. Primary Care Provider: HOUSTON Perez Diagnoses at Discharge Discharge Diagnosis (1) ST elevation myocardial infarction (STEMI): Status: Acute (2) Hypertension: Status: Acute (3) Smoking greater than 10 pack years: Status: Acute (4) Elevated blood pressure reading: Status: Acute Reason for Visit Reason for Visit: stemi Hospital Course Hospital Course As above Physical Exam Const: OTHER: GENERAL: Patient is alert, awake and oriented x3. HEART: Regular S1 and S2. No murmur, rub or gallop. LUNGS: Clear to auscultate bilaterally. CENTRAL NERVOUS SYSTEM: Grossly nonfocal. EXTREMITIES: Lower extremities with out edema bilaterally. Discharge Data Studies Completed and Pending Completed Studies During Hospitalization Category Date Time Status CV. 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 Stat Exams 10/30/24 09:28 Taken Laboratory Results WBC 7.72 10^3/uL (3.29-11.43) 11/01/24 02:33 RBC 4.53 10^6/uL (3.85-5.65) 11/01/24 02:33 Hgb 14.80 g/dL (11.27-16.99) 11/01/24 02:33 Hct 43.7 % (36-47) 11/01/24 02:33 MCV 96.5 fl (85-98) 11/01/24 02:33 MCH 32.7 pg (27-33) 11/01/24 02: MCHC 33.9 g/dL (30-55) 11/01/24 02:33 RDW 13.5 % (12.1-15.1) 11/01/24 02:33 Plt Count 297 10^3/cmm (157-399) 11/01/24 02:33 MPV 8.8 fL (7.4-10.4) 11/01/24 02:33 Neut % (Auto) 64.2 % 11/01/24 02:33 Lymph % (Auto) 24.5 % 11/01/24 02:33 Bledsoe % (Auto) 8.2 % 11/01/24 02:33 Eos % (Auto) 1.9 % 11/01/24 02:33 Baso % (Auto) 0.8 % 11/01/24 02:33 Neut # (Auto) 4.96 10^3/uL (1.8-7.7) 11/01/24 02:33 Lymph # (Auto) 1.9 10^3/uL (0.8-4.8) 11/01/24 02:33 Bledsoe # (Auto) 0.6 10^3/uL (0.2-0.9) 11/01/24 02:33 Eos # (Auto) 0.2 10^3/uL (0.0-0.8) 11/01/24 02:33 Baso # (Auto) 0.1 10^3/uL (0.0-0.1) 11/01/24 02:33 Nucleated RBC % (auto) 0 % 11/01/24 02:33 Nucleated RBCs # 0.0 /100WBC 11/01/24 02:33 Sodium 136 mmol/L (136-145) 11/01/24 02:33 Potassium 4.0 mmol/L (3.5-5.1) 11/01/24 02:33 Chloride 93 mmol/L (98-107) L 11/01/24 02:33 Carbon Dioxide 25 mmol/L (22-29) 11/01/24 02:33 Anion Gap 22.0 (5-19) H 11/01/24 02:33 BUN 19 mg/dL (6-20) 11/01/24 02:33 Creatinine 1.0 mg/dL (0.5-0.9) H 11/01/24 02:33 GFR Calculation 57.4 mL/min (90-130) L 11/01/24 02:33 Glucose 124 mg/dL (65-115) H 11/01/24 02:33 Calculated Osmolality 286 mOsm/kg (285-295) 11/01/24 02:33 Calcium 10.1 mg/dL (8.5-10.5) 11/01/24 02:33 Total Bilirubin 0.3 mg/dL (0.15-1.2) 10/30/24 11:52 AST 20 U/L (0-32) 10/30/24 11:52 ALT 14 U/L (0-33) 10/30/24 11:52 Alkaline Phosphatase 83 U/L (35-105) 10/30/24 11:52 Troponin T 5th Gen ng/L 199 ng/L (0-10) H* 10/30/24 11:52 Total Protein 6.9 g/dL (6.6-8.7) 10/30/24 11:52 Albumin 4.3 g/dL (3.5-5.2) 10/30/24 11:52 Globulin 2.6 g/dL (1.3-4.6) 10/30/24 11:52 Vitals Last Vital Signs Temp 97.7 F 11/02/24 11:30 Pulse 77 11/02/24 11:30 Resp 20 H 11/02/24 11:30 BP 101/66 11/02/24 11:30 Pulse Ox 91 11/02/24 11:30 O2 Del Method Room Air 11/02/24 11:30 Discharge Plan Discharge Patient Disposition: Home Condition: Stable Prescriptions: New aspirin 81 mg Tablet,Delayed Release (Dr/Ec) 81 mg PO DAILY Qty: 90 3RF atorvastatin 40 mg Tablet 80 mg PO BEDTIME Qty: 90 3RF metoprolol succinate 25 mg Tablet Extended Release 24 Hr 25 mg PO DAILY Qty: 90 3RF clopidogrel 75 mg Tablet 75 mg PO DAILY Qty: 90 3RF nitroglycerin 0.4 mg Tablet, Sublingual 0.4 mg sublingual Q5M PRN (Reason: Chest Pain) Qty: 30 3RF sacubitril-valsartan [Entresto] 24-26 mg Tablet 1 tab PO BID Qty: 60 4RF furosemide [Lasix] 20 mg tablet 20 mg PO QAM Qty: 30 3RF Continued cyanocobalamin (vitamin B-12) 1,000 mcg tablet, sublingual 1,000 mcg sublingual DAILY B Complex Plus Vitamin C 14-51-70-5-300 mg capsule 1 cap PO DAILY Rx Instructions: give with food (meal/snack) cholecalciferol (vitamin D3) 125 mcg (5,000 unit) capsule 125 mcg PO DAILY duloxetine 60 mg capsule,delayed release(DR/EC) See Rx Instructions .ROUTE .COMPLEX 90 Days Qty: 90 1RF Dose Instruction: TAKE 1 CAPSULE (60 MG) BY MOUTH daily Rx Instructions: Take 30mg cap with 60mg capsule for 90mg daily dose duloxetine [Cymbalta] 30 mg capsule,delayed release(DR/EC) 30 mg PO DAILY Qty: 90 1RF Rx Instructions: Take 30mg cap with 60mg capsule for 90mg daily dose budesonide-formoterol [Symbicort] 80-4.5 mcg/actuation HFA aerosol inhaler 1 inh inhalation BID 30 Days Qty: 10.2 5RF tizanidine 4 mg tablet 4 mg PO BID PRN (Reason: muscle spasticity) Qty: 60 2RF pantoprazole 20 mg tablet,delayed release (DR/EC) 20 mg PO BID trazodone 100 mg tablet 100 mg PO DAILY Rx Instructions: TAKE 1 TABLET BY MOUTH EVERY DAY albuterol sulfate 90 mcg/actuation HFA aerosol inhaler 2 puff inhalation Q6H Rx Instructions: INHALE 2 PUFFS INTO LUNGS EVERY 6 HOURS NEEDED FOR SHORTNESS OF BREATH OR WHEEZING gabapentin 600 mg tablet 600 mg PO TID PRN (Reason: Pain) Discontinued diclofenac sodium [Voltaren Arthritis Pain] 1 % gel 2 g topical QID Qty: 100 3RF Rx Instructions: apply to painful area Discharge Orders: Discharge Order (Routine); Ordered 11/02/24 Ordered By: Morteza Dean Referrals: Qiana Martinez, WRECKER OPERATOR [Nurse Practitioner] - (We have notified your physician's clinic of the need for a follow-up appointment to be scheduled. If you have not heard from them within the next 2 business days, please call them directly. ) SHANNEN Brown, CONTRACT IMPLEMENTATION ANALYST [Primary Care Provider] - (We have notified your physician's clinic of the need for a follow-up appointment to be scheduled. If you have not heard from them within the next 2 business days, please call them directly. ) Discharge Diet: Cardiac Discharge Activity: Increase activity as tolerated Patient Instructions: Metoprolol (By mouth) (Lopressor, Toprol XL), Nitroglycerin (By mouth), Aspirin (By mouth), Atorvastatin (By mouth) (Lipitor, Atorvaliq), Clopidogrel (By mouth) (Plavix), Sacubitril/Valsartan (By mouth) (Entresto, Entresto Sprinkle), Coronary Angioplasty (DC), How to Stop Smoking (DC), Hypertension (DC), CHF Stoplight, Post Angiogram Home Care Instructions Activity Restrictions/Additional Instructions: Advised patient daily weight. Date water pill Lasix 20 mg if gain more than 3 pounds in 2 consecutive days Take less than 2 g of salt follow-up with cardiology clinic with cardiology nurse practitioner Ms. Livia Hernández in 1 week to 10 days Discharge Attestations Time Spent in Discharge Care*: less than 30 min Quality Metrics Clinical Quality Measures [ Acute Myocardial Infaction { Clinical Trial Participant: No; Contraindication to aspirin: None; Aspirin prescribed; Contraindication to statin: None; Statin prescribed; Contraindication to PCI: None; PCI performed;}] Coding Level of Care Code Acute Code for [facility] Diagnoses ST elevation myocardial infarction (STEMI) I21.3 Hypertension I10 Smoking greater than 10 pack years F17.210 Elevated blood pressure reading R03.0
== END 2024-11-02 16:40 | disposition home or self-care (01) | DRG 322 ==
LOC: ER 09:32 → CCL 09:35 → CSU 19:41
PROVIDERS: Nurse Practitioner Family; Admitting Provider Internal Medicine Cardiovascular Disease; Emergency Provider Family Medicine; PCP Nurse Practitioner Family; Visit Provider Internal Medicine Cardiovascular Disease
PROC: 027034Z Dilation of Coronary Artery, One Artery with Drug-eluting Intraluminal Device, Percutaneous Approach (ICD-10-PCS; principal; 2024-10-30 09:30)
PROC: 027034Z Dilation of Coronary Artery, One Artery with Drug-eluting Intraluminal Device, Percutaneous Approach (ICD-10-PCS; 2024-10-30 09:30)
DX: I21.3 ST elevation (STEMI) myocardial infarction of unspecified site (principal); I50.1 Left ventricular failure, unspecified; I11.0 Hypertensive heart disease with heart failure; E78.5 Hyperlipidemia, unspecified; K21.9 Gastro-esophageal reflux disease without esophagitis; F41.8 Other specified anxiety disorders; F17.210 Nicotine dependence, cigarettes, uncomplicated; Z95.5 Presence of coronary angioplasty implant and graft; Z79.899 Other long term (current) drug therapy; Z88.5 Allergy status to narcotic agent; Z88.8 Allergy status to other drugs, medicaments and biological substances; Z90.710 Acquired absence of both cervix and uterus; Z82.49 Family history of ischemic heart disease and other diseases of the circulatory system; R00.0 Tachycardia, unspecified
CPT/HCPCS: 20553; 36415; 72110; 80048; 80053; 84484; 85025; 85347; 92921; 93005; 93306; 93458; 96374; 96375; 96376; 99152; 99153; 99214; 99285; C1725; C1769; C1874; C1887; C1894; C9600; J1010; J1644; J1940; J2250; J2270; J2405; J3010; J3490; J7030; Q9967

== ENCOUNTER → 2024-11-11 13:40 | Outpatient (BNVA) | payer MEDICARE, MEDICAID, SELFPAY | PROVIDERS: PCP Nurse Practitioner Family; Visit Provider Anesthesiology Pain Medicine | DX: Z53.9 Procedure and treatment not carried out, unspecified reason (principal) | CPT/HCPCS: 64483 ==

== ENCOUNTER → 2024-11-18 10:33 | Outpatient (BNVA) | payer MEDICARE, MEDICAID, SELFPAY | PROVIDERS: PCP Nurse Practitioner Family; Visit Provider Internal Medicine Cardiovascular Disease | DX: I50.20 Unspecified systolic (congestive) heart failure (principal); I42.9 Cardiomyopathy, unspecified; I25.2 Old myocardial infarction; F17.210 Nicotine dependence, cigarettes, uncomplicated | CPT/HCPCS: 99214 ==

== ENCOUNTER 2025-01-29 09:35 | Outpatient (CLI) | payer MEDICARE, MEDICAID, SELFPAY ==
--- NOTE | 2025-01-29 09:30 | USCV_ITS ---
Cathy Bray Age: 54 Gender: F : 1970 Exam Date: 01/29/2025 09:59 Ordering Phys: Morteza Dean MD ([email or web address]) Technologist: [place] [facility] [place]: hx mi BP: / HR: 88 Rhythm: Sinus Technical Quality: Adequate MEASUREMENTS (Male / Female) Normal Values 2D ECHO LV Diastolic Diameter PLAX 3.2 cm 4.2 - 5.9 / 3.9 - 5.3 cm IVS Diastolic Thickness 1.4 cm 0.6 - 1.0 / 0.6 - 0.9 cm IVS Systolic Thickness 1.4 cm LVPW Diastolic Thickness 1.0 cm 0.6 - 1.0 / 0.6 - 0.9 cm LVPW Systolic Thickness 1.3 cm LVOT Diameter 2.0 cm LV Ejection Fraction 2D Teich 66.1 % LV Ejection Fraction MOD 4C 64.1 % LV Ejection Fraction MOD 2C 75.9 % LV Ejection Fraction 2C AL 74.7 % LA Diameter 2.6 cm RA Systolic Volume 4C AL 16.0 ml RA Systolic Volume 4C MOD 14.3 ml LA Sys Volume AL 25.1 cm cubed LA Sys Volume Index AL 14.0 cm cubed/m squared Aorta at Sinotubular Diameter 2.8 cm IVC Diameter 1.5 cm M-MODE LA Ao Ratio MM 1.0 AV Cusp Separation MM 2.4 cm DOPPLER AV Peak Velocity 134.0 cm/s LVOT Peak Velocity 78.0 cm/s AV Area Cont Eq vti 2.0 cm squared AV Area Cont Eq pk 1.9 cm squared MV Peak Velocity 81.0 cm/s MV Area PHT 5.0 cm squared Mitral E to A Ratio 0.7 TV Peak Velocity 264.0 cm/s TR Peak Velocity 278.0 cm/s TR Peak Gradient 30.9 mmHg TV Peak E Velocity 84.0 cm/s PV Peak Velocity 80.0 cm/s FINDINGS Left Ventricle Normal left ventricular size, systolic function and wall thickness, with no regional wall motion abnormalities. Left ventricular ejection fraction is estimated at 60%. Grade I/IV diastolic dysfunction (abnormal relaxation filling pattern), normal to mildly elevated filling pressures. Right Ventricle The right ventricle is normal in size and function. Right Atrium The right atrium is normal in size. Left Atrium The left atrium is normal in size. Mitral Valve Mildly thickened mitral valve. No mitral valve stenosis. Trace mitral valve regurgitation. Aortic Valve Mild aortic valve calcification. No aortic valve stenosis. Trace aortic valve regurgitation. Tricuspid Valve Mild tricuspid valve regurgitation. Pulmonic Valve Structurally normal pulmonic valve without significant stenosis. There is no pulmonic regurgitation. Pericardium Normal pericardium without effusion. Aorta Normal ascending aorta dimension. IVC The inferior vena cava appears normal. CONCLUSIONS Normal left ventricular size, systolic function and wall thickness, with no regional wall motion abnormalities. Left ventricular ejection fraction is estimated at 60%. Grade I/IV diastolic dysfunction (abnormal relaxation filling pattern), normal to mildly elevated filling pressures. Mild aortic valve calcification. No aortic valve stenosis. Trace aortic valve regurgitation. There is no pericardial effusion. Right atrial pressure is around 5 mm of mercury. Morteza Dean MD (Electronically Signed) Final Date: 07 Feb 2025 17:12 S
== END 2025-01-29 09:36 | disposition home or self-care (01) ==
PROVIDERS: PCP Nurse Practitioner Family; Visit Provider Internal Medicine Cardiovascular Disease
DX: I50.9 Heart failure, unspecified (principal); I42.9 Cardiomyopathy, unspecified; R93.1 Abnormal findings on diagnostic imaging of heart and coronary circulation; I05.9 Rheumatic mitral valve disease, unspecified; I35.8 Other nonrheumatic aortic valve disorders; I07.1 Rheumatic tricuspid insufficiency
CPT/HCPCS: 93306

== ENCOUNTER → 2025-02-18 12:52 | Outpatient (BNVA) | payer MEDICARE, MEDICAID, SELFPAY | PROVIDERS: PCP Nurse Practitioner Family; Visit Provider Nurse Practitioner Family | DX: I25.10 Atherosclerotic heart disease of native coronary artery without angina pectoris (principal); R03.0 Elevated blood-pressure reading, without diagnosis of hypertension; Z79.02 Long term (current) use of antithrombotics/antiplatelets; F17.210 Nicotine dependence, cigarettes, uncomplicated; Z95.5 Presence of coronary angioplasty implant and graft; I25.2 Old myocardial infarction | CPT/HCPCS: 99214 ==

== ENCOUNTER → 2025-08-20 15:49 | Outpatient (BNVA) | payer MEDICARE, MEDICAID, SELFPAY | PROVIDERS: PCP Nurse Practitioner Family; Visit Provider Internal Medicine Cardiovascular Disease | DX: R00.2 Palpitations (principal); I25.10 Atherosclerotic heart disease of native coronary artery without angina pectoris; F17.210 Nicotine dependence, cigarettes, uncomplicated | CPT/HCPCS: 99214 ==